=== PATIENT | female | born 1965 | race Caucasian/White ===

== ENCOUNTER 2017-02-08 01:22 | Inpatient (IN) | payer BC ==
[~2017-02-08] VITALS: Ht 167.6 cm; Wt 43.8 kg
--- NOTE | ~2017-02-08 | CATH ---
Cardiac Diagnostic Report Demographics Patient Name RAMANA Braden Gender Female Date of 1965 Age 51 year(s) Patient Number [id number] Date of Study 02/16/2017 Visit Number [id number] Room Number G6314 [place] [id number] Ht 167.64 cm Wt 49.9 kg Referring Papi Graham MD Primary Physician Physician Performing Efstratiou Secondary Physician Physician Jackelin Campos MD Diagnostic Efstratiou Assisting Physician Physician Jackelin Campos MD Interventional Physician Medical Records Technician Physician Findings and Conclusions Diagnostic Findings and Conclusion no significant CAD normal filling pressures Ef 40% Diagnostic Recommendations medical management Procedure Description The patient was brought to the diagnostic cardiac catheterization-EP laboratory in the fasting, non-sedated state. Informed consent was obtained in the written and verbal form after the risks and benefits were explained. The patient had no further questions and agreed to proceed. The planned puncture-incision site(s) were shaved and prepped with ChloraPrep and draped in the usual sterile manner. Conscious sedation, supplemental oxygen, and pain control medications were delivered by a registered nurse under physician guidance. Surface ECG rhythm, blood pressure measurement, and pulse oximetry were monitored throughout the procedure. Arterial access. The access site was infiltrated with lidocaine. The vessel was entered with the Seldinger technique. A sheath was advanced into the vessel and used for catheter placement. Venous access. The access site was infiltrated with lidocaine. The vessel was entered with the Seldinger technique. A sheath was advanced into the vessel and used for catheter placement. Selective left coronary angiography. A catheter was advanced into the left coronary vessel ostium under Fluoroscopic guidance. Contrast was injected by hand. Images were obtained in multiple projections. Selective right coronary angiography. A catheter was advanced into the right coronary vessel ostium under fluoroscopic guidance. Contrast was injected by hand. Images were obtained in multiple projections. Left heart catheterization with ventriculography. A catheter was advanced across the aortic valve to the left ventricle under fluoroscopic guidance. Resting hemodynamics were obtained. With the catheter at the left ventricular apex, contrast was injected. Images were obtained in ENGLISH projections. Post-ventriculography LV pressure was obtained. The catheter was gradually withdrawn into the aorta with continuous pressure recording. Right heart catheterization. A Yermo Miller catheter was successfully advanced to the right atrium, right ventricle, pulmonary artery, and pulmonary artery wedge position under fluoroscopic guidance. Resting hemodynamics were obtained. Measurements included pressures, arterial and venous oxygen saturation samples, and cardiac output. The Yermo was removed without difficulty. Arterial artery hemostasis was achieved. The patient was transferred to a regular nursing floor via cart accompanied by a nurse. The patient left the laboratory in stable condition. Diagnostic Cath Status: Urgent Procedure Procedure Type Diagnostic procedure:Ventriculogram:, Right, Angiography:, Right and Left Heart Cath, Coronary Angios Indications: Septic shock. The procedure was explained in detail to the patient. Risks, complications and alternative treatments were reviewed. Written consent was obtained. Medications Reviewed with Patient prior to Procedure. Angiographic Findings Dominance: Right Cardiac Arteries and Lesion Findings LMCA: Normal (0% Stenosis). LAD: Normal (0% Stenosis). LCx: Normal (0% Stenosis). RCA: Normal (0% Stenosis). Procedure Data Procedure Date Date: 02/16/2017Start: :18 AMEnd: 10:55 AM Entry Locations - Antegrade Percutaneous access was performed through the Left Radial artery (Primary location). A 6 Fr sheath was inserted. This was exchanged for a 6 Fr sheath. Unsuccessful closure attempt was performed using: Manual Compression. Hemostasis was successfully obtained using Mechanical Compression. Closure Comments: 15 cc air in band by el pressure held by ReDent Nova. - Percutaneous access was performed through the Right Femoral vein. A 6 Fr sheath was inserted. Closure Comments: pressure held by ReDent Nova. Procedure Medications Order and Administration + + +-------+-------+ !Time !Medication !Dosage !Route ! + + +-------+-------+ !02/16/2017 !PAE Radial Cocktail: Heparin 5000 units, ! !I.A. ! !10:20 AM !Nitroglycerin 200mcg, Verapamil 3 mg ! ! ! ! !(ACC_3) ! ! ! + + +-------+-------+ !02/16/2017 !Fentanyl !50 mcg !I.V. ! !10:31 AM ! ! ! ! + + +-------+-------+ Devices Used - A6 Fr. Balloon Wedge Catheterwas used for:Right heart cath. - A6 Fr. BS JR 4 Diag. Catheterwas used for:Right coronary angiography. - A6 Fr. BS JL 3.5 Diag. Catheterwas used for:Left coronary angiography. - A6 Fr. BS Angled Pigtail Diag. Catheterwas used for:Left ventriculography. Contrast Material - Isovue 75074 ml Fluoroscopy Time: Diagnostic: 3:48 minutes. Total: 3:48 minutes. Fluoroscopy Dose: Diagnostic: 292 mGy. Total: 292 mGy. Estimated Blood Loss: 10 ml. Medical History Allergies - Other:(cipro). Risk Factors The patient risk factors include:physical activity, last creatinine: 0.4 mg/dl, creatinine clearance: 128.12 ml/min and Current/Recent(w/in 1 year) tobacco use. Admission Data Admission Date: 02/08/2017 Admission Time: 02:18 AM Admit Source: Transfer acute care facility Insurance Payors: Private health insurance. Admission Medications + +------+-----+---------+---------+ + + !Medication !Dosage!Times!Last !Last !Administered !Comments ! ! ! !Per !Delivery !Delivery ! ! ! ! ! !Day !Date !Time ! ! ! + +------+-----+---------+---------+ + + !AMANDO Inhibitor ! ! ! ! ! ! ! !(any) ! ! ! ! ! ! ! + +------+-----+---------+---------+ + + !Beta Amandeep ! ! ! ! ! ! ! !(any) ! ! ! ! ! ! ! + +------+-----+---------+---------+ + + !Unfractionated ! ! ! ! ! ! ! !Heparin (any) ! ! ! ! ! ! ! + +------+-----+---------+---------+ + + Clinical Evaluation Leading to Procedure - There were no CAD presentation symptoms. - There were no anginal symptoms. Anti-anginal medications were prescribed during the past two weeks. The medications are: Beta Blockers and Other. - The patient has been in a state of heart failure within the past two weeks. - The patient's heart failure status was assessed as NYHA Class IV, with CHF symptoms of CANDELARIA. VA Ventriculography Findings normal filling pressure LV function assessed as:Abnormal. Ejection Fraction - 02/10/2017 - Method: Echocardiography. EF%: 30. - 02/06/2017 - Method: LV gram. EF%: 40. Snapshots Hemodynamics Condition: Rest O2 Consumption: Estimated: 148.62Heart Rate: 67 bpm Oxygen Saturation +--------+-----+----+ +---+ + !Location!pCO2 !pO2 !% Saturation !Hgb!O2 Content ! +--------+-----+----+ +---+ + !PA ! ! !55.1 !8.7! ! +--------+-----+----+ +---+ + !RA ! ! !56.9 !8.7! ! +--------+-----+----+ +---+ + !FA ! ! !85.8 !8.7! ! +--------+-----+----+ +---+ + Pressures (mmHg) +-----+ + !Site !Pressure ! +-----+ + !RA !5/3 (2) ! +-----+ + !RV !25/0 ,3 ! +-----+ + !PCW !10/9 (6) ! +-----+ + !PA !20/5 (12) ! +-----+ + !LV !111/0 ,8 ! +-----+ + !LV !107/1 ,7 ! +-----+ + !AO !110/58 (81) ! +-----+ + !LV !104/0 ,7 ! +-----+ + !AO !107/57 (79) ! +-----+ + Cardiac Output +------+ + + + !Method!CO (l/min) !CI (l/min/m2) !SV (ml) ! +------+ + + + !James !4.09 !2.6 !60.78 ! +------+ + + + Valve Gradients and Areas + +--------+--------+--------+---------+ + + !Valve !Peak !Mean !Area !Index !Flow !Source ! + +--------+--------+--------+---------+ + + !Aortic !0 !0 ! ! !470.11 !James ! + +--------+--------+--------+---------+ + + !Aortic !0 !0 ! ! ! ! ! + +--------+--------+--------+---------+ + + Shunts Oxygen Values O2 Capacity 118.32 O2 Consumption 148.62 Flows (l/min) Qs 4.35 Vascular Resistance (dynes x sec x cm-5) + +-----+-----+----+----+---------+-------+ !CO method !TSVR !SVR !TPVR!PVR !TPVR/TSVR!PVR/SVR! + +-----+-----+----+----+---------+-------+ !James !19.27!18.73!2.84!1.26!0.15 !0.07 ! + +-----+-----+----+----+---------+-------+ !Qp or Qs !18.12!17.61! ! ! ! ! + +-----+-----+----+----+---------+-------+ Signatures dtt: Ronnell De La Paz dtd: 02/16/17 1018 Physician Self Edit
--- NOTE | ~2017-02-08 | CON ---
PATIENT'S NAME: ANAM BOLES [facility] AGE: 51 Y [address] ROOM: [place] [address] LOCATION: GPCU ADMIT DATE: 02/08/2017 Consultation DISCHARGE DATE: FAMILY PHYSICIAN: PHYSICIAN, UNKNOWN ATTENDING PHYSICIAN: FESTUS CARUSO DATE OF CONSULTATION: 02/08/2017 REFERRING PHYSICIAN: NEFTALY BIRMINGHAM MD CHIEF COMPLAINT: A 51-year-old female was admitted with epigastric pain, history of melena, and left upper quadrant abdominal pain. HISTORY OF PRESENTING ILLNESS: This 51-year-old lady was admitted with left upper quadrant abdominal pain, recurrent in nature, severe in intensity, rate of 8/10. This was associated with melena. The pain was radiating to the left flank. She was seen in [facility], where she had initial workup done, which showed her white count was 17,500, hemoglobin was 12.2 g, platelet count was 175,000, hematocrit was 38.1. Potassium was 2.6 and sodium was 133. BUN 32 and creatinine 1.8. She was hypotensive and had tachycardia with systolic blood pressure of 60. She was then stabilized, 3 L of normal saline was given and was transferred to [facility] for higher care. REVIEW OF SYSTEMS: 10-point review of system was negative other than mentioned above. PAST MEDICAL HISTORY: 1. She has bipolar disorder. 2. History of cholelithiasis. 3. She has a history of perforated peptic ulcer disease in the past. ALLERGIES: CIPROFLOXACIN. HOME MEDICATIONS: Home medications were reconciled. SOCIAL HISTORY: The patient is a smoker. She has been smoking for the last 30. Denies any alcohol history or other drug abuse. PAST SURGICAL HISTORY: She had exploratory laparotomy for perforated ulcer disease in the past. PATIENT'S NAME: RAMANA [facility] AGE: 51 Y [address] ROOM: [place] [address] LOCATION: GPCU ADMIT DATE: 02/08/2017 Consultation DISCHARGE DATE: FAMILY PHYSICIAN: PHYSICIAN, UNKNOWN ATTENDING PHYSICIAN: FESTUS CARUSO FAMILY HISTORY: Both patients from old age and natural causes. PHYSICAL EXAMINATION: GENERAL: Reveals a well-developed, pleasant lady, who is at present complaining of pain in the left flank area. VITAL SIGNS: Her blood pressure is 113/62, weight is 51.8 kg, pulse is 88 per minute, respiration rate is 32 per minute, and temperature 98.1 degrees Fahrenheit. HEAD: Normocephalic, atraumatic. NECK: Supple. No lymphadenopathy. CHEST: Clear to palpation, percussion, auscultation. CARDIAC: Both heart sound normal. No S3. No murmur. ABDOMEN: Soft, which is tender in the left flank, it is slightly distended. Bowel sounds are present and left renal angle is tender. MUSCULOSKELETAL: She moves all extremities without any restrictive joint disease. NEUROLOGICAL: No lateralization. Cranial nerves II through XII intact. DIAGNOSTIC DATA: She had CT scan of the abdomen done, which showed: 1. Inflammatory changes at the area of the left kidney, which could reflect pyelonephritis. 2. Ill-defined area of increased attenuation in the mid portion of kidney with a small area of decreased attenuation at the lower pole of the left kidney. These findings were indeterminate. This could be associated with the renal infection, neoplastic, renal involvement could not be ruled out. 3. Small volume of air in the bladder and at present left renal collection system, this is likely due to infection. 4. There is a small amount of free fluid in the pelvis. 5. Cholelithiasis. There is a dependent atelectasis at the lung bases and small left pleural effusion. LABORATORY DATA: Lab data shows that her white count which was 17,000 in [facility], has now come down to 14.9, hemoglobin is 10.7, hematocrit 30.4, platelet count is 115. Her prothrombin time is 18.5, INR is 1.75. Neutrophil count is 90%, which is high, there is also 19% bands. CURRENT MEDICATIONS: 1. IV pantoprazole. 2. Lidocaine. 3. Morphine. 4. Fentanyl for pain. PATIENT'S NAME: ANAM BOLES [facility] AGE: 51 Y [address] ROOM: [id number] [place] [id number] [facility] ADMIT DATE: 02/08/2017 Consultation DISCHARGE DATE: FAMILY PHYSICIAN: PHYSICIAN, UNKNOWN ATTENDING PHYSICIAN: FESTUS CARUSO 5. Normal saline. 6. Potassium chloride. 7. Meropenem. ASSESSMENT: 1. This lady has acute pyelonephritis most likely source for leukocytosis and infection. She seems to be quite sick in terms of her left kidney problem. At present, she is on Levophed for blood pressure maintenance while she is getting IV fluids. Her white count has reduced from 17,000 to 14,000, however, she is still quite sick from her kidney infection. 2. She has a history of melena with hemoglobin of 10.7. She has not passed any melenic stools today. RECOMMENDATION: 1. She needs to be stabilized and treated for her kidney problem, which is at this point the reason for her abdominal pain and leukocytosis and sepsis. 2. After the kidney problem has been settled and at rest, she should have EGD and colonoscopy for evaluation of her melena and also for anemia. I discussed the priority of her kidney problem with Dr. Mckeon, who is on- call for the hospitalist service. We appreciate sharing care of this patient. MD STACY MEDRANO/benny /[id number] d: t: 02/09/17 1149, CONSULTATION REPORT
--- NOTE | ~2017-02-08 | CON ---
PATIENT'S NAME: RAMANA [facility] AGE: 51 Y [address] ROOM: [address] [place], [place] [address] LOCATION: [facility] ADMIT DATE: 02/08/2017 Consultation DISCHARGE DATE: FAMILY PHYSICIAN: Rachel Turpin MD ATTENDING PHYSICIAN: FESTUS CARUSO DATE OF CONSULTATION: 02/12/2017 REFERRING PHYSICIAN: NEFTALY BIRMINGHAM MD REQUESTING PHYSICIAN: Dr. Therese Martinez. REASON FOR CONSULTATION: Evaluation and management of a patient with acute respiratory failure requiring mechanical ventilation. CHIEF COMPLAINT: Acute respiratory failure. HISTORY OF PRESENT ILLNESS: This is a 51-year-old female, with history of bipolar disorder, who was admitted on 02/08/2017, with severe sepsis due to pyelonephritis. The patient was started on broad-spectrum antibiotics, but her clinical status did not improve too much. During this admission, she was also diagnosed with congestive heart failure with low ejection fraction of 30% to 35%. Yesterday, she was taken to the operating room by the [facility] where a stent was placed into her left ureter. According to the records, a significant amount of pus came out. She also had hydronephrosis on that side. The patient could not be extubated and was transferred to the intensive care unit on mechanical ventilation with a tidal volume of 400, respiratory rate of 15, 100% FiO2, and a PEEP of 5. Subsequently, the FiO2 was decreased to 40%. This morning, a spontaneous breathing trial was attempted with CPAP of 5 and pressure support of 10. Immediately after the spontaneous breathing trial was started, the patient's respiratory rate went up to 40s and 50s with tidal volumes in the 250 mL range. There was a question regarding increased anxiety given underlying bipolar disorder and generalized anxiety disorder. For this reason, I was asked to come and evaluate the patient. At the time of my evaluation, the patient was awake and complaining about discomfort from the endotracheal tube. I reviewed her fluid balance during this admission, and she has had an approximately 10 L positive fluid balance since admission. Her blood pressure was stable, but on the low side after she was intubated. She has been on meropenem and vancomycin since admission. She was able to nod appropriately to some questions. PAST MEDICAL HISTORY: PATIENT'S NAME: RAMANA [facility] AGE: 51 Y [address] ROOM: [address] [place], [place] [address] LOCATION: [facility] ADMIT DATE: 02/08/2017 Consultation DISCHARGE DATE: FAMILY PHYSICIAN: Rachel Turpin MD ATTENDING PHYSICIAN: FESTUS CARUSO 1. Bipolar disorder. 2. History of perforated peptic ulcer disease. 3. Cholelithiasis. ALLERGIES: TO CIPROFLOXACIN WHICH CAUSES RASH. CURRENT MEDICATIONS: Reviewed as per chart and were reconciled at the time of admission. Current medications were reviewed as per chart as well. Pertinent medications as per history of present illness. SOCIAL HISTORY: She has been smoking about half a pack per day for the last 30 years. There is no history of alcohol or illicit drug abuse. FAMILY HISTORY: According to the chart her parents of old age and she could not remember the diseases that they had specifically REVIEW OF SYSTEMS: Pertinent positives and negatives as per history of present illness. A complete review of systems could not be performed because of the patient's clinical status, as she was intubated, and also on fentanyl drip. PHYSICAL EXAMINATION: VITAL SIGNS: Temperature is 102.7, heart rate is 114, respiratory rate is 26, oxygen saturation 90% on 40% FiO2. Weight 54.4 kg after being 51.8 on admission, height is 5 feet and 6 inches. GENERAL: She is a female, intubated, sitting up in bed in obvious respiratory distress while on spontaneous breathing trial. Frail looking. HEENT: Atraumatic head. PERRLA. Anicteric sclerae. Moist oral mucosa. NECK: Supple. No JVD. No LAD. Trachea midline. No thyromegaly. RESPIRATORY: She has diffuse anterior rhonchi and bibasilar crackles at both lung bases with some diminished sounds bilaterally at the bases. CARDIOVASCULAR: Regular rhythm. Tachycardic. No murmur, rubs, or gallops. ABDOMEN: Soft, nontender, and nondistended. Bowel sounds are diminished, but present. EXTREMITIES: No lower extremity edema. No cyanosis. No clubbing. NEURO: She is alert and able to follow simple commands. LABORATORY AND DIAGNOSTIC DATA: Earlier today, WBC was 12.5, hemoglobin 8.1, hematocrit of 23.6, and platelets of 87. Gram stain from the BAL that was obtained after intubation revealed many white blood cells, but no bacteria. Sodium was 141, potassium of 3.7, PATIENT'S NAME: ANAM BOLES [facility] AGE: 51 Y [address] ROOM: [address] [place], [place] [address] LOCATION: [facility] ADMIT DATE: 02/08/2017 Consultation DISCHARGE DATE: FAMILY PHYSICIAN: Rachel Turpin MD ATTENDING PHYSICIAN: FESTUS CARUSO chloride of 110, total serum bicarbonate of 21, BUN of 6, creatinine of 0.6, albumin of 1.6, and phosphorus of 2.4. Chest x-ray revealed bilateral vascular congestion with increased reticular opacities and small bilateral pleural effusions. This is consistent with fluid overload and pulmonary edema. I also performed a bedside ultrasound that revealed a small to moderate bilateral pleural effusions with free- floating lung. Cardiac echo from February 10, 2017, revealed ejection fraction of 30% to 35%, mild mitral regurgitation, mild pulmonary hypertension with an RVSP of around 36 and bilateral pleural effusions. ASSESSMENT: 1. Acute respiratory failure. This is in context of pulmonary edema with pleural effusions and severe sepsis. She is difficult to wean due to very increased rapid shallow breathing index in the 150 range. According to many studies, this would be a major contraindication for extubation. 2. Pulmonary edema. This is due to fluid overload in context of systolic congestive heart failure. 3. Pleural effusions. These are again in context of fluid overload. They are small to moderate in size and the risks outweigh the benefits for thoracentesis. 4. Fluid overload. This seems to be massive and iatrogenic. She has been almost 10 L positive since admission. 5. Anxiety. She has anxiety at baseline and she is on alprazolam for that. However, I think her tachypnea during the spontaneous breathing trial is more related to the pulmonary edema. 6. Systolic congestive heart failure with low ejection fraction and global hypokinesis. This can be sepsis induced versus related to coronary artery disease or a combination. 7. Tobacco abuse. This was ongoing for a long period of time. The patient might have developed chronic obstructive pulmonary disease. 8. Severe sepsis due to left pyelonephritis and hydronephrosis. She is status post stent placement in the left ureter and she is also on broad- spectrum antibiotics. PLAN: 1. We will continue mechanical ventilation and I will decrease the IV fluid rate. I will give her IV Lasix with albumin today. 2. I will start her on Precedex drip and she may need vasopressors. 3. She will need a better IV access, so I will recommend PICC line placement. 4. There is no the need for thoracentesis today as her pleural effusions are not large and she may respond well to IV diuresis. 5. We will follow up CBC and renal panel. The current assessment and plan was discussed with the patient, the patient's PATIENT'S NAME: ANAM BOLES [facility] AGE: 51 Y [address] ROOM: [place] [address] LOCATION: [facility] ADMIT DATE: 02/08/2017 Consultation DISCHARGE DATE: FAMILY PHYSICIAN: Rachel Turpin MD ATTENDING PHYSICIAN: FESTUS CARUSO, and the nursing staff at bedside. I spent 45 minutes of critical care time managing acute respiratory failure in a patient with severe sepsis, pulmonary edema, pleural effusion, and multiple other comorbidities. I personally reviewed the data and coordinated care among healthcare providers, and personally updated the patient's family at the bedside. MD JAMES MAYO/benny /[id number] d: 02/13/17 1220 t: 02/13/17 1715, CONSULTATION REPORT
--- NOTE | ~2017-02-08 | OR ---
PATIENT'S NAME: RAMANA [facility] AGE: 51 Y [address] ROOM: [place] [address] LOCATION: GICU ADMIT DATE: 02/08/2017 OR/Procedure Report DISCHARGE DATE: FAMILY PHYSICIAN: Rachel Turpin MD ATTENDING PHYSICIAN: FESTUS CARUSO SURGEON: Janak Charles MD RN PLACEMENT: DATE OF PROCEDURE: 02/11/2017 PREOPERATIVE DIAGNOSES: 1. Urosepsis. 2. Left distal ureter stone. POSTOPERATIVE DIAGNOSES: 1. Urosepsis. 2. Left distal ureter stone. PROCEDURE PERFORMED: Cystoscopy, left stent placement. ANESTHESIA: General. COMPLICATIONS: None. INDICATION FOR PROCEDURE: The patient is a 51-year-old female with severe urosepsis who was emergently consulted on secondary to a 7 x 5 mm distal left ureter stone with severe hydronephrosis. DETAILS OF PROCEDURE: After informed consent was obtained, the patient was taken to the operating room. A general anesthetic was applied and she was placed in a dorsal lithotomy position. The groin area was prepped and draped in normal sterile fashion. Cystoscope was introduced into the urethra and bladder without difficulty. The left ureteral orifice was identified and cannulated with a guidewire up into the renal pelvis. Next, a 6-Yi multi- length ureteral stent was passed over a guidewire up into the renal pelvis under fluoroscopy guidance. Once the stent was introduced past the stone, a large amount of purulent drainage was noted. Radiograph imaging showed good positioning of the stent. The patient tolerated the procedure and was emergently transferred to the Intensive Care Unit. JANAK CHARLES MD JULES/modl [facility] AGE: 51 Y [address] ROOM: [place] [address] LOCATION: GICU ADMIT DATE: 02/08/2017 OR/Procedure Report DISCHARGE DATE: FAMILY PHYSICIAN: Rachel Turpin MD ATTENDING PHYSICIAN: FESTUS CARUSO /[id number] d: 02/12/170 t: 03/03/17 0904, OPERATIVE SUMMARY
--- NOTE | ~2017-02-08 | ECHO ---
Transthoracic Echocardiography Report (TTE) Demographics Patient Name ANAM BOLES Date of Study 02/10/2017 Patient Number [id number] Visit Number [id number] Date of 1965 Room Number G6332 Gender Female Number Age 51 year(s) Referring [facility] Social Services Director Tianna Singh RDCS, Physician Therese RVT Physician Interpreting Ana Cristina Benítez Senior Sales Compensation Analyst Physician A MD Supervising Ordering [facility] Therese MD/MLP Physician Nurse Stress Coater Slate Conclusions Contractility Score Summary At rest the following contractility abnormalities were noted: Hypokinesis of the Mid lima-lateral, the Mid anterior, the Mid infero-septal, the Mid inferior, the Mid infero-lateral, the Basal infero-lateral, the Apical inferior, the Apical septal, the Basal infero-septal, the Apical lateral, the Apical anterior, the Basal anterior, the Basal inferior, the Basal lima-lateral and the Apical cap segments; Dyskinesis of the Mid lima-septal and the Basal lima-septal segments. Summary The estimated left ventricular ejection fraction is 30-35%. Mild mitral regurgitation by color Doppler. Mild mitral annular calcification. Moderate tricuspid regurgitation by color Doppler. There is mild pulmonary hypertension. The pulmonary pressure (RVSP) is 36.53 mmHg. Pleural effusion present. Procedure Type of Study TTE procedure:2D Echocardiogram. Procedure Date Date: 02/10/2017 Start: 03:17 PM Study Location: Inpatient Portable Technical Quality: Adequate visualization Indications:Heart Failure. Appropriate Use Criteria: 9 Patient Status: Routine HR: 82 bpm BP: 89/52 mmHg M-Mode/2D Measurements LV Diastolic Dimension: 4.9 cm LV Systolic Dimension: 3.92 cm LV Septum Diastolic: 0.64 cm LV PW Diastolic: 0.93 cm Cardiac Output: 3.27 l/min LA Dimension: 2.2 cm LVOT: 1.8 cm LVOT VTI: 15.7 cm RV Base: 4.03 cm LV Stroke volume: 39.93 ml RV Length: 5.84 cm TAPSE: 2.21 cm TDI-S': 12.5 cm/s Doppler Measurements AV Peak Velocity: 1.14 m/s MV Peak E-Wave: 0.8 m/s AV Peak Gradient: 5.2 mmHg MV Peak A-Wave: 0.56 m/s AV Mean Gradient: 4 mmHg MV E/A Ratio: 1.43 LVOT Peak Velocity: 0.86 m/s MV Deceleration Time: 137 msec TR Velocity:2.32 m/s PV Peak Velocity: 0.82 m/s TR Gradient:21.53 mmHg PV Peak Gradient: 2.68 mmHg Estimated RAP:15 mmHg Estimated PASP: 36.53 mmHg Estimated RVSP: 37 mmHg Findings Left Ventricle Diastolic assessment reveals Grade II pseudonormal diastolic function . The left ventricle is borderline dilated . Diffuse hypokinesis. Right Ventricle Normal right ventricle structure and function. Left Atrium The left atrium is moderately dilated by LA volume index measurement. Right Atrium The right atrium is mildly dilated. Dilated IVC with poor inspiratory collapse consistent with elevated RA pressure. Mitral Valve Mild mitral regurgitation by color Doppler. Mild mitral annular calcification. Aortic Valve The aortic valve is mildly sclerotic. Tricuspid Valve Moderate tricuspid regurgitation by color Doppler. There is mild pulmonary hypertension. The pulmonary pressure (RVSP) is 36.53 mmHg. Pulmonic Valve Normal pulmonic valve structure and function. Trivial pulmonic valve regurgitation. Pericardial Effusion No evidence of pericardial effusion. Miscellaneous Visualized portions of the aortic root and ascending aorta appear normal in size. Pleural Effusion Pleural effusion present. Contractility Score LV regional wall motion:(0-Non visualized 1-Normal 2-Hypokinesis 3-Akinesis 4-Dyskinesis 5-Aneurysm) Signature dtt: Ronnell De La Paz dtd: 02/10/17 1517 Physician Self Edit
--- NOTE | ~2017-02-08 | DS ---
PATIENT'S NAME: RAMANA [facility] AGE: 51 Y [address] ROOM: [place] [address] LOCATION: GPCU ADMIT DATE: 02/08/2017 Discharge Summary DISCHARGE DATE: 02/23/2017 FAMILY PHYSICIAN: Rachel Turpin MD ATTENDING PHYSICIAN: Manuelito Short ADMISSION DIAGNOSIS: Septic shock. DISCHARGE DIAGNOSIS: Septic shock secondary to acute obstructive pyelonephritis with abscess, resolved. SECONDARY DIAGNOSES: 1. Nonischemic cardiomyopathy. 2. Severe protein-calorie malnutrition. 3. Bipolar disease. 4. Anemia of iron deficiency. 5. History of peptic ulcer disease. PROCEDURES PERFORMED: 1. Cystoscopy with left stent placement. Procedure done on 02/11/2017. 2. CT guided nephrostomy tube placement on 02/14/2017. 3. Cardiac catheterization done on 02/16/2017 that shows no significant coronary artery disease. Normal filling pressure with EF of 40%. 4. Echocardiogram done on 02/10/2017 that shows left ventricular ejection fraction of 30 to 35%. CONSULTATIONS: 1. Urology. 2. Cardiology. 3. Physical Therapy and Occupational Therapy. 4. Interventional Radiology. HISTORY OF PRESENT ILLNESS: The patient is a 51-year-old female who presents with 2 days' history of having nausea and vomiting and left upper quadrant pain. At that time, the intensity was 8/10, radiates to the back. Because of this problem, the patient presented to outside facility in [facility]. Over there, the patient was found to have leukocytosis with a white blood cell count of 17.5, hemoglobin at 12.4, and platelets of 175,000. The patient was transferred for further care to our hospital. Shortly on arrival to our facility, the patient's blood pressure was in systolic 60s and tachycardic. The patient was given 3 L of normal fluids without resolvement of blood pressure. The patient was started on dopamine and Levophed drip. The patient received 1 g of ceftriaxone at the outside hospital. PATIENT'S NAME: RAMANA [facility] AGE: 51 Y [address] ROOM: [place] [address] LOCATION: GPCU ADMIT DATE: 02/08/2017 Discharge Summary DISCHARGE DATE: 02/23/2017 FAMILY PHYSICIAN: Rachel Turpin MD ATTENDING PHYSICIAN: Manuelito Short [facility]RSE: The patient was admitted in the ICU, was treated with pressor and IV fluids and meropenem. A CT of abdomen was done that shows pyelonephritis of the left kidney without obstruction. The patient improved during stay with IV fluids and antibiotics. Urine culture grew out E. coli. The patient was transferred out from ICU and was doing well. However, the patient had acute hypoxic respiratory failure with increased temperature during stay. The patient was readmitted to the ICU and had repeat CT that showed obstructive left kidney pyelonephritis with hydronephrosis with possible abscess. The patient was taken urgently by Urology for cystoscopy with kidney stone removal and stent placement. The patient continued to improve. The patient hemodynamically was stable but however, patient continued to have some fever and increased leukocytosis. IR was consulted to place a drainage for nephrostomy tube. Also patient during her stay, had a complication with acute hypoxic respiratory failure secondary to decompensated systolic heart failure. Initial echocardiogram shows EF of 30%. During his stay, the patient had a coronary angiogram done for further investigation which shows no signs of coronary artery disease. The patient was treated medically. The patient continued to do well on meropenem. Nephrostomy culture and urine culture showed E coli, was sensitive to ceftriaxone. Meropenem was changed to ceftriaxone. The patient during stay improved well, was afebrile and decreased leukocytosis. The patient's nephrostomy tube was taken out after it had minimal output. The patient was switched to oral Augmentin. During oral Augmentin, the patient continued to show improvement. The patient was seen by Physical Therapy and Occupational Therapy during her stay. The patient was discharged to home in stable condition to follow up with Urology and Cardiology. CONDITION: Stable. DISPOSITION: Home. DISCHARGE MEDICATIONS: Please see MAR. DISCHARGE INSTRUCTIONS: If she has fever, abdominal pain, nausea, vomiting, chest pain, or shortness of breath, please go to the emergency department. FOLLOW-UP: The patient is to follow up with Urology for stent removal and Cardiology for further investigation of nonischemic cardiomyopathy. Greater than 30 minutes were spent on discharge planning. NICO COBOS MD PATIENT'S NAME: ANAM BOLES AGE: 51 Y [address] ROOM: [place] [address] [facility] AD[facility] DATE: 02/08/2017 Discharge Summary DISCHARGE DATE: 02/23/2017 FAMILY PHYSICIAN: Rachel Turpin MD ATTENDING PHYSICIAN: Manuelito Short/benny /[id number] d: 02/24/17 0158 t: 02/24/17 0615, DISCHARGE SUMMARY
--- NOTE | ~2017-02-08 | CON ---
PATIENT'S NAME: RAMANA [facility] AGE: 51 Y [address] ROOM: [place] [address] LOCATION: GICU ADMIT DATE: 02/08/2017 Consultation DISCHARGE DATE: FAMILY PHYSICIAN: Rachel Turpin MD ATTENDING PHYSICIAN: FESTUS CARUSO REFERRING PHYSICIAN: NEFTALY BIRMINGHAM MD HISTORY OF PRESENT ILLNESS: The patient is a 51-year-old female whom I was emergently consulted on secondary to urosepsis. The patient's CT scan today shows a 7 mm distal left ureter stone with hydronephrosis and inflammatory change in left kidney consistent with left pyelonephritis, also the possibility of a subcapsular renal abscess. I discussed these findings with the patient and recommended emergent cystoscopy with stent placement. PAST MEDICAL HISTORY: Significant for bipolar disorder, history of gallstones, and history of perforated ulcer disease. MEDICATIONS: See detailed history and physical. ALLERGIES: CIPROFLOXACIN. SOCIAL HISTORY: The patient is a smoker and has smoked for the past 30 years. PAST SURGICAL HISTORY: Significant for exploratory laparotomy for perforated ulcer disease. PHYSICAL EXAMINATION: GENERAL: Toxic-appearing female in acute distress. RESPIRATORY: Respirations are rapid and labored CARDIAC: Severe tachycardia. ABDOMEN: Soft. Normoactive bowel sounds. There was significant left flank tenderness with palpation. IMPRESSION: Uroseptic patient with obstructed stone. PLAN: We will take to OR for emergent cystoscopy and stent placement. Risks and benefits discussed. [facility] AGE: 51 Y [address] ROOM: [place] [address] LOCATION: GICU ADMIT DATE: 02/08/2017 Consultation DISCHARGE DATE: FAMILY PHYSICIAN: Rachel Turpin MD ATTENDING PHYSICIAN: FESTUS CARUSO MD JULES LOVE/benny /[id number] d: 02/12/17 0159 t: 08/01/17 0902, CONSULTATION REPORT
--- NOTE | ~2017-02-08 | HP ---
PATIENT'S NAME: CLARISSA BOLESA [facility] AGE: 51 Y [address] ROOM: [place] [address] LOCATION: [facility] ADMIT DATE: 02/08/2017 History & Physical DISCHARGE DATE: FAMILY PHYSICIAN: PHYSICIAN, UNKNOWN ATTENDING PHYSICIAN: FESTUS CARUSO DATE OF SERVICE: CHIEF COMPLAINT: Nausea, vomiting, and epigastric and left upper quadrant pain as well as intermittent melena and decreased oral intake. HISTORY OF PRESENT ILLNESS: This is a 51-year-old female, who says that about roughly 2 days ago, the patient has been having this nausea and vomiting of bilious content associated with epigastric and left upper quadrant pain. At that time, the intensity was about 8/10 and radiated to the back. Yesterday, the patient also had a few episodes of melena. Because she has been vomiting, the patient also has poor oral intake. The patient does deny any urinary frequency, urgency, or dysuria. The patient does complain of tenderness in costovertebral angle bilaterally. Because of this problem, the patient initially presented to the outside facility in [facility]. Over there, the patient was found to have leukocytosis, white blood cells 17.5 with hemoglobin at 12.2, platelets at 175,000 and hematocrit 38.1. Potassium 2.6, sodium 133, CO2 of 21, BUN 32, and creatinine 1.8. UA was positive for leukocyte, also moderate bacteria, and also positive nitrite and it was cloudy. Shortly after arrival, the patient's blood pressure over there dropped down to the 60 systolic and tachycardia at 130s. The patient was given a total of 3 L normal saline and started on dopamine and also Levophed drip. The patient also got 1 g of IV ceftriaxone over there. Her blood pressure improved to the 110, MAP was in the 79. The patient was transferred here for further care. REVIEW OF SYSTEMS: As mentioned in history of present illness. All other systems were reviewed and were negative except those mentioned in history of present illness. PAST MEDICAL HISTORY: 1. Bipolar disorder. 2. History of cholelithiasis. 3. History of perforated peptic ulcer disease in the past. ALLERGIES: CIPROFLOXACIN, WHICH CAUSES RASH. PATIENT'S NAME: RAMANA [facility] AGE: 51 Y [address] ROOM: [address] [address] LOCATION: GICU ADMIT DATE: 02/08/2017 History & Physical DISCHARGE DATE: FAMILY PHYSICIAN: PHYSICIAN, MULUGETA ATTENDING PHYSICIAN: FESTUS CARUSO [place] MEDICATIONS: Currently has been reconciled. The patient denies any NSAID. SOCIAL HISTORY: The patient is an active cigarette smoker about half pack per day for the last 30 years. She denies any alcohol or any illegal drug use. PAST SURGICAL HISTORY: Status post exploratory laparotomy for perforated peptic ulcer disease in the past. FAMILY HISTORY: Both parents from old age. She could not remember from what cause. PHYSICAL EXAMINATION: VITAL SIGNS: At the time of dictation, temperature 103.1, heart rate 123, respirations 38, blood pressure 118/49, MAP of 72, and saturation 94% on room air. GENERAL APPEARANCE: The patient looks acutely ill, in moderate discomfort in general appearance. Alert and oriented x3. HEENT: Pupils equally round and reactive to light. Extraocular muscles intact. Anicteric sclerae. Nasal turbinates are normal bilaterally. Moist oral mucosa. NECK: No JVD. CARDIOVASCULAR: Tachycardic. Normal S1, S2. No murmur. No rubs. No gallops. Regular rhythm. RESPIRATORY: Clear to auscultation. No rales. No rhonchi. No crackles. No wheezing. ABDOMEN: Soft, nondistended, tenderness to palpation in the epigastric and also in the left upper quadrant about 4/10 intensity. No abdominal rigidity at the moment. Bowel sounds are present. The patient also has costovertebral angle tenderness to palpation bilaterally. Soft. EXTREMITIES: No edema in upper or lower extremities. SKIN: No ulcer, no rash, no cyanosis. NEUROLOGIC: Grossly nonfocal. LABORATORY DATA: Currently, the only thing available in the lab right now is lactic acid 2.8. White blood cell 14.4, hemoglobin 10.7, hematocrit 31.7, and platelets 148. All the rest is pending at the moment. IMAGING STUDIES: None were performed from the outside facility. PATIENT'S NAME: ANAM BOLES [facility] AGE: 51 Y [address] ROOM: [address] [address] LOCATION: GICU ADMIT DATE: 02/08/2017 History & Physical DISCHARGE DATE: FAMILY PHYSICIAN: PHYSICIAN, UNKNOWN ATTENDING PHYSICIAN: FESTUS CARUSO ASSESSMENT AND PLAN: 1. Regarding her septic shock: Currently, I am going to do a CT of the abdomen and pelvis without contrast to see what is going on. Differential here could be pyelonephritis, perforated peptic ulcer disease, cholecystitis, or any other abnormality that could explain the patient's presentation. I will get a urine culture and blood culture 2 sets and also start her on the IV meropenem for coverage. IV fluids for hydration and also keep her on the pressor with Levophed and also on Ananth- Synephrine. If necessary, we will do a third one, which will be a vasopressin if needed. Further plan will depend on clinical course. 2. Regarding her WILLIAM: Continue iv fluids and check renal panel and watch closely for fluid overload. She has gotten 3L NS bolus from outside facility, I will continue at 75cc/hr while on vasopressors. 2. Regarding her bipolar disorder: Home medication has to be reconciled before it can be addressed. 3. Regarding her history of perforated peptic ulcer disease: Patient mentioned she had few episodes of melena yesterday. CT scan is being performed right now. I am going to cover her with IV Protonix 40 mg b.i.d. Also, check Hemoccult blood stool x3. If positive, we will consult GI. For now, keep the patient n.p.o. 4. Regarding her deep venous thrombosis prophylaxis: In the setting of a possible GI problem, for now I will not do anything pharmacological. For now, we will do the compression devices. 5. In addition, I will get a blood type and screen in case the patient will require transfusion. 6. The patient is a full code. Time spent in care on the day of admission 70 minutes where more than half of the time was spent on counseling, including going over the plan of care with the patient multiple times and also by addressing her questions and concerns to her satisfaction. This time also includes going over the plan of care with the nurse. The remainder of the time was spent on interview and chart review and also on the physical examination. Further plan will depend on clinical course. MD KARLA BECKHAM/modl /[id number] D: 426 T: 210 HISTORY & PHYSICAL
--- NOTE | ~2017-02-08 | CON ---
PATIENT'S NAME: RAMANA [facility] AGE: 51 Y [address] ROOM: [place] [address] LOCATION: GICU ADMIT DATE: 02/08/2017 Consultation DISCHARGE DATE: FAMILY PHYSICIAN: Rachel Turpin MD ATTENDING PHYSICIAN: FESTUS CARUSO DATE OF CONSULTATION: 02/11/2017 REFERRING PHYSICIAN: NEFTALY BIRMINGHAM MD REASON FOR CARDIOLOGY CONSULT: Decreased ejection fraction and wall motion abnormalities on echocardiogram. HISTORY OF PRESENT ILLNESS: This is a 51-year-old female, admitted with septic shock with acute kidney injury secondary to UTI. She had been having abdominal pain with nausea, vomiting, and melena stools before admission. Her echocardiogram shows an ejection fraction of 30 to 35% with extensive hypokinesis. She denies any chest pain, palpitations, presyncope, or syncope. She does complain of some dyspnea on exertion prior to this admission. Yesterday, she did have an event of flash pulmonary edema after working with Physical Therapy. She is currently comfortable, resting on her nasal cannula, but she was previously on BiPAP and Lasix. There is no personal or family history of cardiac disease. PAST MEDICAL HISTORY: 1. Bipolar disease. 2. History of cholelithiasis. 3. History of perforated peptic ulcer. PAST SURGICAL HISTORY: Exploratory laparotomy after peptic ulcer perforation. FAMILY HISTORY: No known family history diagnoses. Both of her parents due to old age. SOCIAL HISTORY: The patient is a current daily cigarette smoker. She smoked half a pack per day for the last 30 years. She denies alcohol or illicit drug use. CURRENT MEDICATIONS: 1. Proventil inhaled every 6 hours. 2. Lopressor 25 mg p.o. twice daily. 3. Protonix 40 mg p.o. daily. 4. Prozac 40 mg p.o. daily. 5. Trileptal 300 mg p.o. daily in the morning and 600 mg p.o. daily in the PATIENT'S NAME: RMAANA [facility] AGE: 51 Y [address] ROOM: [place] [address] LOCATION: GICU ADMIT DATE: 02/08/2017 Consultation DISCHARGE DATE: FAMILY PHYSICIAN: Rachel Turpin MD ATTENDING PHYSICIAN: FESTUS CARUSO. MEDICATION ALLERGIES: Ciprofloxacin causing hives. REVIEW OF SYSTEMS: Pertinent positive review of systems as listed in the HPI. All other review of systems were evaluated and negative. PHYSICAL EXAMINATION: VITAL SIGNS: Temperature 98.9, pulse 106, respirations 28, blood pressure 110/62, and O2 saturation 93% on 2 L nasal cannula. The patient weighs 53.6 kg. SKIN: [place], warm, and dry. EYES: Sclerae are clear. No xanthelasmas. ENT: Oral mucosa is pink and moist. No jugular venous distention. No carotid bruits. CHEST: Respirations are even and slightly labored. Lung sounds are clear to bilateral upper lobes. They are diminished to bilateral lower lobes. HEART: Regular rate and rhythm. Normal S1 and S2. No murmurs, rubs, or gallops. She is tachycardic. ABDOMEN: Tender to palpation, but bowel sounds are present x4 quadrants. MUSCULOSKELETAL: Gait is normal. EXTREMITIES: Peripheral pulses palpable. No clubbing, cyanosis, or lower extremity edema present. She does have mild presacral edema. PSYCH: Alert and oriented. Mood and affect are appropriate. IMPRESSION AND PLAN: Per Dr. Carranza. 1. Acute systolic congestive heart failure with an ejection fraction of 30% to 35%. We will evaluate her for a possible ischemic etiology by continuing to check cardiac enzymes every 6 hours x3 sets as well as get a ProBNP, lipid panel, BMP, magnesium, and a 12-lead EKG. 2. Severe sepsis with urinary tract infraction. She is still having instances of febrileness on antibiotics. She is currently off IV pressor support, but continues on IV antibiotics. 3. Acute kidney injury, currently improved. The patient did have a positive hematest stool, and plan for endo is deferred until the patient is stabilized. The patient will need undergo right and left heart catheterization which is stable as well. We will continue to monitor, evaluate, and treat as appropriate. Thank for this consult. Thank you for allowing [facility] to interact in the care of this patient. PATIENT'S NAME: ANAM BOLES [facility] AGE: 51 Y [address] ROOM: [address] [address] LOCATION: GICU ADMIT DATE: 02/08/2017 Consultation DISCHARGE DATE: FAMILY PHYSICIAN: Rachel Turpin MD ATTENDING PHYSICIAN: FESTUS CARUSO ALPHONSO GONZALEZ APRN FOR CARRINGTON CARRANZA MD DEH/modl /[id number] d: 02/12/17 [facility] t: 02/25/17 1013, CONSULTATION REPORT
[~2017-02-08 01:22] MED LIST changes: -AUGMENTIN 875-1 EACH PO; -BENTYL10 MG PO; -FEOSOL325 MG PO; -PROTONIX40 MG PO; -TRAZODONE HCL50 MG PO; -TYLENOL WITH C1 EACH PO
[2017-02-08 03:29] LABS: HEMATOCRIT 31.7 % (33.0-46.0); HEMOGLOBIN 10.7 g/dL (10.0-15.0); MCH 31.6 pg (27.0-34.0); MCHC 33.8 gm/dL (32.0-36.5); MCV 93.5 fl (83.0-98.0); MPV 10.7 fl (9.4-12.4); PLATELET COUNT 148 K/uL (150-450); RBC 3.39 M/uL (3.50-5.50); RDW-CV 13.7 % (11.9-14.6); WBC 14.4 K/uL (4.0-11.0)
[2017-02-08 03:37] LABS: INR - (THERAPEUTIC) 1.73 (0.92-1.07); PROTIME 18.3 SECONDS (9.8-11.4); PTT 41 SECONDS (25-32)
[2017-02-08 03:50] LABS: ALBUMIN 2.4 gm/dL (3.5-5.0); ANION GAP 14.4 (10.0-19.0); CREATININE 1.6 mg/dL (0.5-1.1); POTASSIUM 3.4 mMol/L (3.7-5.1); TOTAL BILIRUBIN 0.2 mg/dL (0.0-1.5); TOTAL PROTEIN 5.3 g/dL (6.0-8.4)
[2017-02-08 03:51] LABS: CALCIUM 6.5 mg/dL (8.5-10.5)
[2017-02-08 03:59] LABS: ABSOLUTE NEUTROPHIL CT (ANC) 12.7 K/uL (1.8-7.8); BANDED NEUTROPHIL # 2.7 K/uL (0.0-0.1); BANDED NEUTROPHILS % 19 %; LYMPHOCYTE # 0.9 K/uL (0.8-4.0); LYMPHOCYTE % 6 %; MONOCYTE # 0.6 K/uL (0.0-1.0); SEGMENTED NEUTROPHIL # 9.9 K/uL (1.8-7.8); SEGMENTED NEUTROPHIL % 69 %
[2017-02-08 04:18] LABS: BICARBONATE 13.4 mmol/L (18.0-23.0); PO2 120 mmHg (80-90)
[2017-02-08 04:26] LABS: PCO2 16 mmHg (35-45)
--- NOTE | 2017-02-08 04:43 | NUR ---
Significant Event: PT ADMIT TO ICU. HYPOTENSIVE UPON ARRIVAL. LEVOPHED CONTINUED AT MAXIMUM DOSE OF 0.2MCG/KG/MIN. 3L NS RECEIVED EN ROUTE. PT IS TACHYPNEIC. CLEAR LUNG AUSCULATATION. ABDOMINAL DISCOMFORT AND TENDERNESS, PT WENT DOWN FOR STAT CT OF ABD. PT UNABLE TO VOID. BLADDER SCAN REVEALED O ML OF URINE IN HER BLADDER. DECREASED GFR, ELEVATED CREATININE, LOW K. REPLACING WITH 40 KCL, PT CAN HAVE ICE CHIPS. NEED X3 HEMATEST TO TEST FOR OCCULT IN HER FECES. NEED UA YET. PT TO RECEIVE IV ANTIBIOTICS. Follow up: WEAN LEVOPHED.
[2017-02-08 08:46] LABS: HEMATOCRIT 30.4 % (33.0-46.0); HEMOGLOBIN 10.7 g/dL (10.0-15.0); MCH 32.5 pg (27.0-34.0); MCHC 35.2 gm/dL (32.0-36.5); MCV 92.4 fl (83.0-98.0); MPV 10.8 fl (9.4-12.4); RBC 3.29 M/uL (3.50-5.50); RDW-CV 13.8 % (11.9-14.6); WBC 14.9 K/uL (4.0-11.0)
[2017-02-08 08:58] LABS: INR - (THERAPEUTIC) 1.75 (0.92-1.07); PROTIME 18.5 SECONDS (9.8-11.4)
[2017-02-08 09:06] LABS: ALBUMIN 2.2 gm/dL (3.5-5.0); ALK PHOS 73 IU/L (33-138); ALT 31 IU/L (12-78); AST 55 IU/L (10-40); BLOOD UREA NITROGEN 31 mg/dL (6-24); CHLORIDE 114 mMol/L (96-110); CREATININE 1.3 mg/dL (0.5-1.1); SODIUM 140 mMol/L (135-145); TOTAL BILIRUBIN 0.2 mg/dL (0.0-1.5); TOTAL PROTEIN 5.1 g/dL (6.0-8.4)
[2017-02-08 09:27] LABS: CALCIUM 6.4 mg/dL (8.5-10.5); CO2 16 mMol/L (22-32); ESTIMATED GFR (MDRD EQUATION) 43
[2017-02-08 15:16] LABS: BILIRUBIN URINE NEGATIVE (NEGATIVE); BLOOD URINE 250 /UL (NEGATIVE); COLOR URINE YELLOW (YELLOW); GLUCOSE URINE NEGATIVE (NEGATIVE); KETONE URINE NEGATIVE (NEGATIVE); LEUKOCYTES URINE 500 /UL (NEGATIVE); NITRITE URINE POSITIVE (NEGATIVE); PROTEIN URINE 100 mg/dL (NEGATIVE); TURBIDITY URINE 1+ (CLEAR); UROBILINOGEN URINE NORMAL (NORMAL)
[2017-02-08 15:24] LABS: WBC URINE FULL FIELD #/HPF (NEGATIVE)
[2017-02-08 15:25] LABS: BACTERIA URINE MODERATE (NEGATIVE); EPITHELIAL URINE 0-2 #/HPF (NEGATIVE)
--- NOTE | 2017-02-08 16:15 | NUR ---
Significant Event: Patient is alert and oriented x3. Patient's temperature has been decreasing throughout the day and was 98.1 F at 1500. RR has been 20-30s. Lung sounds clear and dim. Patient has been on room air. Levophed turned off at 1249. SBP 100s, with MAPs 70s-80s. Patient has been complaining of L) side abdomial pain. 3 loose BMs. Patient was unable to void until 1300, but has had no issues voiding since. UA and urine culture sent to lab. Up to chair/bedside commode. Follow up: Abdominal US scheduled for AM
--- NOTE | 2017-02-09 05:25 | NUR ---
Significant Event: A/OX3. DENIES N/T. MOVES ALL EXTREMITIES SPONTANEOUSLY AND TO COMMAND. PERRLA. PAIN TO ABDOMEN. CONTROLLED WITH FENTANYL PUSHES, TYLENOL AND TRAMADOL. HIGHEST TEMP 100.8. SBP IN 110S-120S. HEART RATE 90S-110S. RESPIRATIONS IN THE 30S- DUE TO PAIN. LUNGS CLEAR ON ROOM AIR. MAPS IN 70S-90S. IV TO LEFT AC RUNNING NS AT 150/HR AND INTERMITTENT ANTIBIOTICS. IV TO RIGHT AC SALINE LOCKED. UP 1 ASSIST. REGULAR DIET. Follow up:ABDOMINAL U/S TODAY.
[2017-02-09 06:37] LABS: HEMATOCRIT 29.9 % (33.0-46.0); HEMOGLOBIN 10.2 g/dL (10.0-15.0); MCH 32.2 pg (27.0-34.0); MCHC 34.1 gm/dL (32.0-36.5); MCV 94.3 fl (83.0-98.0); MPV 11.6 fl (9.4-12.4); RBC 3.17 M/uL (3.50-5.50); RDW-CV 14.1 % (11.9-14.6); WBC 10.4 K/uL (4.0-11.0)
[2017-02-09 06:40] LABS: PLATELET COUNT 79 K/uL (150-450)
[2017-02-09 06:56] LABS: ALBUMIN 2.1 gm/dL (3.5-5.0); MAGNESIUM 1.6 mg/dL (1.8-2.6); TOTAL PROTEIN 5.3 g/dL (6.0-8.4)
[2017-02-09 06:59] LABS: CALCIUM 6.8 mg/dL (8.5-10.5); TOTAL BILIRUBIN 0.5 mg/dL (0.0-1.5)
[2017-02-09 07:56] LABS: ABSOLUTE NEUTROPHIL CT (ANC) 9.5 K/uL (1.8-7.8); BANDED NEUTROPHIL # 2.1 K/uL (0.0-0.1); BANDED NEUTROPHILS % 20 %; LYMPHOCYTE # 0.3 K/uL (0.8-4.0); LYMPHOCYTE % 3 %; MONOCYTE # 0.4 K/uL (0.0-1.0); SEGMENTED NEUTROPHIL # 7.4 K/uL (1.8-7.8); SEGMENTED NEUTROPHIL % 71 %
[2017-02-09] MEDS ORDERED: BENTYL10 MG PO (10:15)
[2017-02-09] MEDS ORDERED: PROTONIX40 MG PO (10:15)
[2017-02-09] MEDS ORDERED: TRAZODONE HCL50 MG PO (10:17)
--- NOTE | 2017-02-09 11:39 | NUR ---
Significant Event: Patient transferred from NTU/ICU to PCU at 1050 per w/c accompanied by this nurse and transport staff. a/o x 3. pain to left side of abdomen that radiates around to the back. stated numbness/tingling to bilateral hands "since last evening". Takes meds whole. regular diet. refused breakfast. c/o abdominal pain and decreased appetite. voids per bathroom. scant amount of stool this am- green color and mucous consistency. sent to lab to test for Cdiff. refused nicotine patch. took meds whole. IV to right anticutibal saline locked. IV to left aticubital with NS infusing at 150ml/hr. ambulates with gait belt and one assist. gait steady and slow due to pain. Potassium this am 3.0, magnesium 1.6, plts 79. tele- sinus tach. Pending test- ultrasound of the abdomen and kidneys. temperature this am 99.0.
--- NOTE | 2017-02-09 12:27 | NUR ---
Introduced self and care management services to patient and spouse at bedside. Lives in [place], [place]. Not feeling well, but better than when she came in, she reports. Visibly short of breath and seems anxious while sitting up in chair. Denies concerns about going home on discharge, spouse and family will assist her as needed. Came in emergently so admissions hasn't gotten insurance information yet, suggested spouse or daughter run down to admissions with the card so we can let insurance know she is here. Will follow and assist with dc planning as needs identified.
--- NOTE | 2017-02-09 16:40 | NUR ---
Significant Event: A/OX3, VSS ON ROOM AIR, SLIGHT TEMP THIS SHIFT OF 100.2. SLIV TO R)AC, L)AC HAS NS @ 100mL/HR WITH IV ABX. FENTANYL GIVEN @ 1322 FOR COMPLAINTS OF L)ABD PAIN, TYLENOL/ULTRAM GIVEN @ 1000. C-DIFF WAS NEGATIVE. NO SKIN ISSUES. PT. GETS UP SBA IN ROOM TO BATHROOM. ULTRASOUND OF ABD/PELVIS DONE TODAY. Follow up: CONTINUE WITH POC.
--- NOTE | 2017-02-10 03:51 | NUR ---
A/OX3. VSS except oxygen sats in 90s on 3L NC overnight. Lung sounds clear, bowel sounds present. C/O pain in left side of abdomen, controlled with tylenol. Temps 98.8-101.5. Bilateral AC IVs. Left AC IV running NS at 100mL/hr with IV ABX. Up with SBA in room.
[2017-02-10 10:59] LABS: BICARBONATE 13.6 mmol/L (18.0-23.0); PCO2 25 mmHg (35-45); PO2 69 mmHg (80-90)
[2017-02-10 11:00] LABS: LACTATE 3.19 mEq/L (0.50-1.60)
[2017-02-10 11:13] LABS: HEMATOCRIT 28.1 % (33.0-46.0); HEMOGLOBIN 9.8 g/dL (10.0-15.0); MCH 31.8 pg (27.0-34.0); MCHC 34.9 gm/dL (32.0-36.5); MCV 91.2 fl (83.0-98.0); MPV 11.6 fl (9.4-12.4); PLATELET COUNT 78 K/uL (150-450); RBC 3.08 M/uL (3.50-5.50); RDW-CV 13.6 % (11.9-14.6); WBC 10.1 K/uL (4.0-11.0)
[2017-02-10 11:32] LABS: ALBUMIN 2.1 gm/dL (3.5-5.0); ALK PHOS 125 IU/L (33-138); ALT 38 IU/L (12-78); AST 45 IU/L (10-40); CALCIUM 7.5 mg/dL (8.5-10.5); CHLORIDE 111 mMol/L (96-110); CREATININE 0.7 mg/dL (0.5-1.1); ESTIMATED GFR (MDRD EQUATION) > 60; SODIUM 138 mMol/L (135-145); TOTAL PROTEIN 5.8 g/dL (6.0-8.4)
[2017-02-10 11:34] LABS: BLOOD UREA NITROGEN 10 mg/dL (6-24); CO2 16 mMol/L (22-32); TOTAL BILIRUBIN 0.7 mg/dL (0.0-1.5)
[2017-02-10 11:56] LABS: ABSOLUTE NEUTROPHIL CT (ANC) 9.3 K/uL (1.8-7.8); BANDED NEUTROPHIL # 1.8 K/uL (0.0-0.1); BANDED NEUTROPHILS % 18 %; LYMPHOCYTE # 0.6 K/uL (0.8-4.0); LYMPHOCYTE % 6 %; MONOCYTE # 0.2 K/uL (0.0-1.0); SEGMENTED NEUTROPHIL # 7.5 K/uL (1.8-7.8); SEGMENTED NEUTROPHIL % 74 %
--- NOTE | 2017-02-10 14:51 | NUR ---
Rapid response called at 1015 for respiratory distress. Patient HR 130s-150s, RR 50s with sats 80s, T of 103.8 increase in L)lower abd pain with shooting pain down left leg. Bipap initiated. CXR/ABG and lab obtained. Patient improved greatly with bipap. IVF dc'd. 2d echo ordered. K+ replace. Repeat blood cultures.
--- NOTE | 2017-02-10 17:08 | NUR ---
Significant Event: Pt alert and oriented x3. Currently rates pain 4/10 to LL abdomen, states tolerable. Rapid reponse called today due to respiratory distress, see note for further details. [facility] and xanax given at 1000. Fentanyl at 1014. Morphine at 1030 for air hunger. Toradol at 1047 for fever. Saline lock to left anticubital, flushes well. IV infusing potassium chloride into right anticubital. Garibay catheter inserted at 1230. Blood culters, ABGs, echo, and chest x-ray done today. Vital signs currently stable. Bowel sounds hypoactive. Follow up: Continue plan of care. Continue antibiotics.
[2017-02-11 03:54] LABS: HEMATOCRIT 25.4 % (33.0-46.0); HEMOGLOBIN 8.6 g/dL (10.0-15.0); MCH 31.3 pg (27.0-34.0); MCHC 33.9 gm/dL (32.0-36.5); MCV 92.4 fl (83.0-98.0); MPV 11.9 fl (9.4-12.4); PLATELET COUNT 63 K/uL (150-450); RBC 2.75 M/uL (3.50-5.50); RDW-CV 13.8 % (11.9-14.6); WBC 9.1 K/uL (4.0-11.0)
[2017-02-11 04:07] LABS: BLOOD UREA NITROGEN 9 mg/dL (6-24); CALCIUM 7.5 mg/dL (8.5-10.5); CHLORIDE 109 mMol/L (96-110); CO2 24 mMol/L (22-32); CREATININE 0.7 mg/dL (0.5-1.1); ESTIMATED GFR (MDRD EQUATION) > 60; MAGNESIUM 1.7 mg/dL (1.8-2.6); SODIUM 139 mMol/L (135-145)
[2017-02-11 04:08] LABS: ALBUMIN 1.7 gm/dL (3.5-5.0); ANION GAP 8.9 (10.0-19.0); INR - (THERAPEUTIC) 1.24 (0.92-1.07); PHOSPHORUS 1.7 mg/dL (2.5-4.9); POTASSIUM 2.9 mMol/L (3.7-5.1); PROTIME 13.1 SECONDS (9.8-11.4)
[2017-02-11 04:52] LABS: ABSOLUTE NEUTROPHIL CT (ANC) 7.8 K/uL (1.8-7.8); BANDED NEUTROPHIL # 1.6 K/uL (0.0-0.1); BANDED NEUTROPHILS % 18 %; LYMPHOCYTE # 0.6 K/uL (0.8-4.0); LYMPHOCYTE % 7 %; MONOCYTE # 0.6 K/uL (0.0-1.0); SEGMENTED NEUTROPHIL # 6.2 K/uL (1.8-7.8); SEGMENTED NEUTROPHIL % 68 %
--- NOTE | 2017-02-11 05:27 | NUR ---
Significant Event: Follow up: PATIENT A/OX3, MEX4, TMAX 103.1, HR 70-110, BP NORMAL, NORCO GIVEN X1, TYLENOL X4, KOEHLER IN PLACE AND CLEANED
[2017-02-11 15:16] LABS: CPK 32 IU/L (21-215)
--- NOTE | 2017-02-11 15:18 | NUR ---
Significant Event: Pt alert and oriented x3. Toradol and ultram given at 1152 for pain. Tylenol and norco given at 1257 for pain and fever. IV inserted into left anterior forearm. Garibay catheter DCd at 1125. Oxygen requirements 2-4L this shift. Cardiology consult, trending cardiac enzymes. Magnesium and potassium replaced. Lopressor started today. Temp high 101.1, notified and vanco ordered. Follow up: Continue plan of care.
[2017-02-12 01:29] LABS: HEMATOCRIT 23.6 % (33.0-46.0); HEMOGLOBIN 8.1 g/dL (10.0-15.0); MCH 31.8 pg (27.0-34.0); MCHC 34.3 gm/dL (32.0-36.5); MCV 92.5 fl (83.0-98.0); MPV 11.9 fl (9.4-12.4); RBC 2.55 M/uL (3.50-5.50); RDW-CV 13.7 % (11.9-14.6); WBC 12.5 K/uL (4.0-11.0)
[2017-02-12 01:32] LABS: PLATELET COUNT 87 K/uL (150-450)
[2017-02-12 01:48] LABS: ALK PHOS 75 IU/L (33-138); ALT 23 IU/L (12-78); ANION GAP 10.2 (10.0-19.0); AST 19 IU/L (10-40); BLOOD UREA NITROGEN 8 mg/dL (6-24); CHLORIDE 112 mMol/L (96-110); CO2 21 mMol/L (22-32); CREATININE 0.6 mg/dL (0.5-1.1); ESTIMATED GFR (MDRD EQUATION) > 60; MAGNESIUM 1.5 mg/dL (1.8-2.6); POTASSIUM 3.2 mMol/L (3.7-5.1); SODIUM 140 mMol/L (135-145)
[2017-02-12 01:54] LABS: ALBUMIN 1.5 gm/dL (3.5-5.0); CALCIUM 7.1 mg/dL (8.5-10.5); PHOSPHORUS 1.4 mg/dL (2.5-4.9); TOTAL BILIRUBIN 0.5 mg/dL (0.0-1.5); TOTAL PROTEIN 4.8 g/dL (6.0-8.4)
[2017-02-12 02:12] LABS: ABSOLUTE NEUTROPHIL CT (ANC) 11.3 K/uL (1.8-7.8); BANDED NEUTROPHIL # 2.4 K/uL (0.0-0.1); BANDED NEUTROPHILS % 19 %; LYMPHOCYTE # 0.5 K/uL (0.8-4.0); LYMPHOCYTE % 4 %; MONOCYTE # 0.6 K/uL (0.0-1.0); SEGMENTED NEUTROPHIL # 8.9 K/uL (1.8-7.8); SEGMENTED NEUTROPHIL % 71 %
--- NOTE | 2017-02-12 04:49 | NUR ---
Pt transfer from OR intubated with 7.5 ETT secured at 20 teeth. Lung sounds slightly coarse, sxn small-moderate thick cream with strong Pt cough. Mini BAL collected. Initial vent settings A/C mode 14, TV 450, P5. Changed to CPAP this AM, Pt awake following commands. Will continue with SBT and poss extubate
[2017-02-12 05:36] LABS: HEMATOCRIT 24.3 % (33.0-46.0); HEMOGLOBIN 8.5 g/dL (10.0-15.0); MCH 32.2 pg (27.0-34.0); MPV 11.9 fl (9.4-12.4); PLATELET COUNT 94 K/uL (150-450); RBC 2.64 M/uL (3.50-5.50); RDW-CV 13.7 % (11.9-14.6)
[2017-02-12 05:49] LABS: ANION GAP 13.7 (10.0-19.0); BLOOD UREA NITROGEN 6 mg/dL (6-24); CHLORIDE 110 mMol/L (96-110); CO2 21 mMol/L (22-32); CREATININE 0.6 mg/dL (0.5-1.1); ESTIMATED GFR (MDRD EQUATION) > 60; PHOSPHORUS 2.4 mg/dL (2.5-4.9); POTASSIUM 3.7 mMol/L (3.7-5.1); SODIUM 141 mMol/L (135-145)
[2017-02-12 05:54] LABS: ALBUMIN 1.6 gm/dL (3.5-5.0); CALCIUM 7.1 mg/dL (8.5-10.5)
--- NOTE | 2017-02-12 07:12 | NUR ---
Significant Event: Patient sedated on arrival, started propofol to continue sedation. Placed an OG tube to LIS, levine inserted, R) PIV started. Started Fenanyl, titrated off propofol, patient became increasingly more awake, follow commands, nodding appropriatly, writting to communicate. Patient SR to ST, SBP 80s-110s. Lungs sounds slightly course, overbreathes set rate, tolerated CPAP late in shift. Hypoactive bowel sounds, 1 lg BM. Levine has adequate UOP. Replaced 40meq KCL, 30mmol K phos, 2grams mag. Follow up: Extubation.
[2017-02-12 07:50] LABS: ABSOLUTE NEUTROPHIL CT (ANC) 11.4 K/uL (1.8-7.8); BANDED NEUTROPHIL # 1.6 K/uL (0.0-0.1); BANDED NEUTROPHILS % 12 %; LYMPHOCYTE # 0.7 K/uL (0.8-4.0); LYMPHOCYTE % 5 %; MONOCYTE # 0.7 K/uL (0.0-1.0); SEGMENTED NEUTROPHIL # 9.9 K/uL (1.8-7.8); SEGMENTED NEUTROPHIL % 76 %
[2017-02-12 10:51] LABS: HEMOGLOBIN 7.9 g/dL (10.0-15.0); MCH 31.6 pg (27.0-34.0); MCHC 34.3 gm/dL (32.0-36.5); MPV 11.9 fl (9.4-12.4); PLATELET COUNT 102 K/uL (150-450); RDW-CV 13.8 % (11.9-14.6); WBC 13.4 K/uL (4.0-11.0)
[2017-02-12 11:09] LABS: ALK PHOS 75 IU/L (33-138); ALT 21 IU/L (12-78); ANION GAP 10.6 (10.0-19.0); AST 16 IU/L (10-40); BLOOD UREA NITROGEN 6 mg/dL (6-24); CHLORIDE 112 mMol/L (96-110); CO2 23 mMol/L (22-32); CREATININE 0.4 mg/dL (0.5-1.1); MAGNESIUM 1.9 mg/dL (1.8-2.6); POTASSIUM 3.6 mMol/L (3.7-5.1); SODIUM 142 mMol/L (135-145); TOTAL BILIRUBIN 0.5 mg/dL (0.0-1.5); TOTAL PROTEIN 5.1 g/dL (6.0-8.4)
[2017-02-12 11:10] LABS: ALBUMIN 1.5 gm/dL (3.5-5.0); CALCIUM 7.2 mg/dL (8.5-10.5)
[2017-02-12 11:32] LABS: ABSOLUTE NEUTROPHIL CT (ANC) 12.3 K/uL (1.8-7.8); BANDED NEUTROPHIL # 1.5 K/uL (0.0-0.1); BANDED NEUTROPHILS % 11 %; LYMPHOCYTE # 0.5 K/uL (0.8-4.0); LYMPHOCYTE % 4 %; MONOCYTE # 0.4 K/uL (0.0-1.0); SEGMENTED NEUTROPHIL # 10.9 K/uL (1.8-7.8); SEGMENTED NEUTROPHIL % 81 %
--- NOTE | 2017-02-12 17:06 | NUR ---
PT A/O, SEDATED ON PRECEDEX AT 0.4 AND FENT GTT AT 75. MOVES ALL EXT EQUALLY AND HAS STRONG SPONT COUGH/GAG. PERRL AND 2B, FOLLOWS ALL COMMANDS. VSS, HR 110-120 THIS AM AND DOWN TO 70-80'S THIS AFTERNOON, RUPESH GTT TO KEEP MAP >65 CURRENTLY RUNNING AT 1.0. PULSES 2+ T/O, EDEMA DOWN TO 1+ FROM 3+, PT IS NEARLY 4L NEGATIVE. LASIX AND ALBUMIN GIVEN WITH PHENOMENAL RESPONSE VIA KOEHLER CATH, BM X2, REMAINS NPO, BS HYPO, OGT WITH MINIMAL GREEN/BILE O/P. R) UPPER ARM PICC PLACED, PIV X2 STILL IN PLACE. VANCO DC'D WITH KATHI CONTINUING, T-MAX 102.7 THIS AM WITH TYLENOL GIVEN AND RE-CHECK OF 98.5 AND AFTERNOON TEMP OF 99.2. CPAP THIS AM, D/T SIGNIFICANT PULM EDEMA, PT PLACED BACK TO A/C WITH PEEP OF 5 AND ON 30% WITH HIGH 90 SATS, WILL RE-CHECK LABS AND CXR IN AM. LS C/D THIS AFTERNOON.
[2017-02-13 04:10] LABS: ANION GAP 12.2 (10.0-19.0); CALCIUM 7.7 mg/dL (8.5-10.5); CREATININE 0.5 mg/dL (0.5-1.1); MAGNESIUM 1.7 mg/dL (1.8-2.6); PHOSPHORUS 3.8 mg/dL (2.5-4.9); POTASSIUM 3.2 mMol/L (3.7-5.1)
[2017-02-13 04:20] LABS: HEMATOCRIT 24.1 % (33.0-46.0); HEMOGLOBIN 8.1 g/dL (10.0-15.0); MCH 31.5 pg (27.0-34.0); MCHC 33.6 gm/dL (32.0-36.5); MCV 93.8 fl (83.0-98.0); MPV 12.4 fl (9.4-12.4); RBC 2.57 M/uL (3.50-5.50); RDW-CV 13.9 % (11.9-14.6); WBC 14.1 K/uL (4.0-11.0)
[2017-02-13 04:22] LABS: PLATELET COUNT 155 K/uL (150-450)
--- NOTE | 2017-02-13 05:31 | NUR ---
PT. ON VENT AT 30% FIO2 WITH SATS 94-96%. ETCO2 36-38. BREATH SOUNDS CLEAR AND DIMINISHED T/O. SUCTIONED A SCANT AMOUNT OF THIN YELLOW SECRETIONS. WILL TRY TO WEAN AND EXTUBATE TODAY.
[2017-02-13 06:18] LABS: ABSOLUTE NEUTROPHIL CT (ANC) 11.6 K/uL (1.8-7.8); BANDED NEUTROPHIL # 1.3 K/uL (0.0-0.1); BANDED NEUTROPHILS % 9 %; LYMPHOCYTE # 1.4 K/uL (0.8-4.0); LYMPHOCYTE % 10 %; SEGMENTED NEUTROPHIL # 10.3 K/uL (1.8-7.8); SEGMENTED NEUTROPHIL % 73 %
--- NOTE | 2017-02-13 10:26 | NUR ---
A - PT SCREENED D/T LOS. EXTUBATED THIS AM. K+ 3.2, GLU 88, BUN/SUPERIOR COURT JUDGE 12/0.5, ALB 2.0, WBC 14.1. PERTINENT MEDS: LASIX, PROTONIX. PT IS NPO...ANTICIPATE PT WILL HAVE DIET ORDERED SOON. INTAKE MOSTLY REFUSED PRIOR TO INTUBATION. EST NEEDS: [id number] KCALS, 63-78 GM PROTEIN, 1 ML/KCAL FLUIDS. D - AT RISK INADEQUATE ORAL INTAKE R/T DECREASED APPETITE AEB INTAKE RECORD. I - GOAL: 25-50% INTAKE BY NEXT REVIEW. M/E - WILL OFFER ENSURE BID W/ BF AND DINNER WHEN DIET RESUMES AND F/U IN 2-4 DAYS.
--- NOTE | 2017-02-13 17:31 | NUR ---
VSS, RUPESH GTT AT 0.5, DOBUT CONT AT 2 AND LASIX IVP Q12H WITH KOEHLER DC'D AND PT NEGATIVE <1000 TODAY. BM X2, FAIR ORAL INTAKE, NPO AT MN FOR PLANNED DRAIN PLACEMENT PER IR IN AM TO L) RENAL ABCESS SITE. UP WITH 1PA, NORCO GIVEN FOR MILD H/A PAIN. IVF CONT AT 20MLS/HR PER R) UPPER ARM PICC AND PIV X2 S.L. REPLACED MG AND K TODAY, WITH AM LABS ORDERED. EXTUBATED AT 0835 ON 3LNC AND LS C/D AND ADEQ SPONT COUGH PRESENT WITH MINIMAL WHITE/CREAM SECRETIONS AND SATS MID 90'S.
--- NOTE | 2017-02-14 04:28 | NUR ---
Significant Event: Pt is alert and orineted x3. Pupils are equal and reactive. Moves all extremities spontaneously and to command. Ambulates with a 1 assist. Pt on a RUPESH gtt to keep maps greater than 65 this shift. Pt on 3L of O2 via NC. Pt stands and pivots to the bedside commode to void. levine was D/C prior to this shift. Pt has voided well since. Bowel sounds are active, no BM this shift. PIV in place and PICC to the R) upper arm. Follow up: Drain placement this morning.
[2017-02-14 05:36] LABS: BLOOD UREA NITROGEN 7 mg/dL (6-24); CALCIUM 7.9 mg/dL (8.5-10.5); CHLORIDE 100 mMol/L (96-110); CREATININE 0.4 mg/dL (0.5-1.1); MAGNESIUM 1.7 mg/dL (1.8-2.6); PHOSPHORUS 2.9 mg/dL (2.5-4.9); POTASSIUM 3.1 mMol/L (3.7-5.1); SODIUM 139 mMol/L (135-145)
[2017-02-14 05:42] LABS: ALBUMIN 1.8 gm/dL (3.5-5.0); ANION GAP 7.1 (10.0-19.0); CO2 35 mMol/L (22-32)
[2017-02-14 05:49] LABS: BASOPHIL % 0.2 %; EOSINOPHIL # 0.2 K/uL (0.0-0.5); EOSINOPHIL % 1.5 %; HEMATOCRIT 23.9 % (33.0-46.0); IMMATURE GRANULOCYTE # 0.1 K/uL (0.0-0.3); LYMPHOCYTE # 1.1 K/uL (0.8-4.0); LYMPHOCYTE % 8.6 %; MCV 94.5 fl (83.0-98.0); MONOCYTE # 0.8 K/uL (0.0-1.0); MONOCYTE % 6.2 %; MPV 11.4 fl (9.4-12.4); NEUTROPHIL # (ANC) 10.3 K/uL (1.8-7.8); NEUTROPHIL % 82.5 %; NRBC % 0 /100WBC (0-0.00); RBC 2.53 M/uL (3.50-5.50); RDW-CV 13.5 % (11.9-14.6); WBC 12.5 K/uL (4.0-11.0)
[2017-02-14 05:50] LABS: HEMOGLOBIN 7.9 g/dL (10.0-15.0); MCH 31.2 pg (27.0-34.0); MCHC 33.1 gm/dL (32.0-36.5); PLATELET COUNT 268 K/uL (150-450)
[2017-02-14 05:51] LABS: INR - (THERAPEUTIC) 1.23 (0.92-1.07); PROTIME 12.9 SECONDS (9.8-11.4)
--- NOTE | 2017-02-14 16:35 | NUR ---
PT A/OX3, VSS, T-MAX 99.2, NORCO GIVEN X2 AND ULTRAM X1 THIS AFTERNOON. C/O L) LATERAL FLANK/BACK PAIN POST DRAIN PLACEMENT. SEROSANG TO DRAIN TUBING BUT NONE TO BE MEASURED. GRAM STAIN AND CULTURE SENT WITH NEGATIVE RESULTS THUS FAR. R)PICC CONT WITH NS AT 20MLS/HR, MADE PCU STATUS WITH PRESSORS OFF SINCE 0500. K-PAD PLACED TO L) FLANK/BACK WITH MILD RELIEF. UP TO COMMODE WITH 1PA AND ADEQ UOP AND NEGATIVE THIS SHIFT; LASIX CHANGED TO PO. MEROPENEM CONT, PIV X1 WITH DRSG CHANGED D/T PT NOT LIKING CLEAR PLASTIC TAPE. NO BM, FAIR ORAL INTAKE, DENIES N/V.
--- NOTE | 2017-02-15 05:31 | NUR ---
Significant Event: TRANSFERRED OUT OF ICU AT 2220. ON 2L O2. HAVING A GREAT DEAL OF PAIN. TOOK XANAX WHEN TRANSFERRED DOWN AND DID NOT TAKE ANYTHING ELSE UNTIL 0430 WHEN A NORCO AND TRAMADOL WAS GIVEN. DRAIN IN L) BACK PATENT WITH 5ML OF DRAINAGE. UP WITH STANDBY ASSIST. VOIDING WELL IN BR. MAX TEMP OF 100.2 WHILE STILL ON ICU. Follow up:
[2017-02-15 06:34] LABS: BASOPHIL % 0.2 %; BLOOD UREA NITROGEN 7 mg/dL (6-24); CHLORIDE 98 mMol/L (96-110); CREATININE 0.4 mg/dL (0.5-1.1); EOSINOPHIL # 0.1 K/uL (0.0-0.5); EOSINOPHIL % 0.6 %; HEMATOCRIT 25.9 % (33.0-46.0); HEMOGLOBIN 8.7 g/dL (10.0-15.0); IMMATURE GRANULOCYTE # 0.1 K/uL (0.0-0.3); IMMATURE GRANULOCYTE % 0.6 %; LYMPHOCYTE # 0.9 K/uL (0.8-4.0); LYMPHOCYTE % 7.6 %; MAGNESIUM 1.7 mg/dL (1.8-2.6); MCH 31.9 pg (27.0-34.0); MCHC 33.6 gm/dL (32.0-36.5); MCV 94.9 fl (83.0-98.0); MONOCYTE # 0.8 K/uL (0.0-1.0); MPV 10.9 fl (9.4-12.4); NEUTROPHIL # (ANC) 10.6 K/uL (1.8-7.8); NRBC % 0 /100WBC (0-0.00); PHOSPHORUS 2.9 mg/dL (2.5-4.9); POTASSIUM 3.5 mMol/L (3.7-5.1); RBC 2.73 M/uL (3.50-5.50); RDW-CV 13.5 % (11.9-14.6); SODIUM 139 mMol/L (135-145); WBC 12.4 K/uL (4.0-11.0)
[2017-02-15 06:36] LABS: ALBUMIN 1.9 gm/dL (3.5-5.0); ANION GAP 9.5 (10.0-19.0); CO2 35 mMol/L (22-32)
[2017-02-15 06:37] LABS: PLATELET COUNT 367 K/uL (150-450)
--- NOTE | 2017-02-15 15:44 | NUR ---
Significant Event:VSS.RA.C/O BACK/LEFT SIDE PAIN THIS SHIFT. NORCO GIVEN THIS AM, AND ULTRAM GIVEN X1 THIS AFTERNOON WITH RELIEF. CHECK EMAR FOR TIMES.CYRIL DRAIN REMAINS INTACT TO LT LOWER BACK. FLUSHED WITH 5 MLS THIS SHIFT. STAND BY ASSIST. APPETITE BETTER BUT REMAINS POOR. Follow up:WILL CONTINUE TO MONITOR PER PLAN OF CARE.
[2017-02-16 05:17] LABS: CREATININE 0.4 mg/dL (0.5-1.1)
--- NOTE | 2017-02-16 05:33 | NUR ---
Significant Event: UP WITH MINIMAL ASSIST TO BR. GAIT SLIGHLTY UNSTEADY. O2 AT 1L FOR PART OF THE NIGHT. SOMA AND TRAMADOL GIVEN X1 FOR PAIN WITH VERY LITTLE RELIEF. NORCO AND XANAX GIVEN WITH MOST OF THE PAIN RELIEVED. NPO AFTER MIDNIGHT FOR A HEART CATH TODAY. NS STARTED AT 75ML/HR. Follow up:
--- NOTE | 2017-02-16 11:18 | NUR ---
A-NUTRITION F/U TRANSFER OUT OF ICU. DRAIN TO L)BACK PLACED. HEART CATH TODAY [facility] (STANDING WT): 43.9 KG; WT ON 02/14 (BED SCALE): 51.7 KG. WAS ON IV LASIX; CHANGED TO PO ON 02/14. ? ACCURACY OF WTS D/T A 17 LB WT LOSS X 2 DAYS LABS: NA 139, K+ 3.5, GLU 80, BUN 7, OPERATION SUPERVISOR 0.4, ALB 1.9 MEDS: MENTIONED ABOVE, LASIX IV CHANGED TO PO DIET RX: NPO D/T HEART CATH TODAY. PO INTAKE HAS BEEN POOR SINCE LAST F/U; REF-75%; AVG IS 25%. APPETITE WAS A LITTLE BETTER YESTERDAY. EST NUTR NEEDS: [id number] KCALS AND 63-78 GM PROTEIN D-AT NUTRITION RISK W/INADEQUATE ORAL INTAKE R/T ALTERED APPETITE AEB INTAKE RECORDS, WT LOSS. I-1)ENSURE ENLIVE TO RESTART WHEN DIET RESUMED 2)IF PO INTAKE DOES NOT IMPROVE, IF DESIRED, CONSIDER ENTERAL NUTRITION SUPPORT. M/E-GOAL: PO INTAKE >/=50% BY NEXT F/U 1)F/U PO INTAKE, SUPPLEMENT, WT, AND POC IN 3-5 DAYS 2)ASSIST NEEDED
--- NOTE | 2017-02-16 15:52 | NUR ---
Significant Event: Alert and oriented X3. Room air. SBP 90's and 100's. HR 60's, 70's and 80's. CYRIL drain to right flank, 5 ml out this shift. CYRIL drain flushed with 5 ml. [place] given X 2, last given at 1600. Ultram given X 1, last given at 1205. Xanax given X 1 at 1205. Heart Cath done this shift. Right radial approach and right groin approach. Right radial dressed with bandaid and coban, no drainage. Right groin, dressing clean dry and intact and site soft. PICC to upper right arm, flushes well with good blood return and saline locked. Pleasant and cooperative with cares. Follow up:
--- NOTE | 2017-02-17 04:21 | NUR ---
Significant Event: A/0 X 4, ABMULATES STAND BY ASSIST. WAS HYPOTENSIVE FIRST HALF OF SHIFT WITH SBP'S IN LOW 90'S. SHE DID HAVE EXCELLENT PO INTAKE AND SBP'S 2ND HALF OF SHIFT WERE BOTH 110. ALL OTHER VSS ON RA, AFEBRILE. BOTH CATH SITES (RIGHT RADIAL AND RIGHT GROIN) HAVE HAD NO COMPLICATIONS. ON IV MEROPENAM. COMPPRESSION BULB DRAIN TO LEFT KIDNEY HAD 5 ML OUTPUT. IT IS TO BE FLUSHED WITH 5 ML BID. 1 NORCO GIVEN X 1 AT 0100 FOR RIGHT FLANK PAIN WITH RELIEF NOTED. Follow up:
[2017-02-17 10:30] LABS: BASOPHIL # 0.1 K/uL (0.0-0.2); BASOPHIL % 0.5 %; EOSINOPHIL # 0.1 K/uL (0.0-0.5); EOSINOPHIL % 0.5 %; HEMATOCRIT 28.6 % (33.0-46.0); HEMOGLOBIN 9.6 g/dL (10.0-15.0); IMMATURE GRANULOCYTE # 0.2 K/uL (0.0-0.3); IMMATURE GRANULOCYTE % 1.4 %; LYMPHOCYTE # 1.2 K/uL (0.8-4.0); LYMPHOCYTE % 8.9 %; MCH 32.2 pg (27.0-34.0); MCHC 33.6 gm/dL (32.0-36.5); MONOCYTE # 0.7 K/uL (0.0-1.0); MONOCYTE % 5.5 %; MPV 10.5 fl (9.4-12.4); NEUTROPHIL # (ANC) 10.8 K/uL (1.8-7.8); NEUTROPHIL % 83.2 %; NRBC % 0 /100WBC (0-0.00); RBC 2.98 M/uL (3.50-5.50); RDW-CV 13.7 % (11.9-14.6)
[2017-02-17 10:37] LABS: PLATELET COUNT 598 K/uL (150-450)
[2017-02-17 10:44] LABS: ALBUMIN 2.2 gm/dL (3.5-5.0); ALK PHOS 72 IU/L (33-138); ALT 36 IU/L (12-78); ANION GAP 11.4 (10.0-19.0); AST 37 IU/L (10-40); BLOOD UREA NITROGEN 7 mg/dL (6-24); CALCIUM 8.4 mg/dL (8.5-10.5); CHLORIDE 105 mMol/L (96-110); CO2 27 mMol/L (22-32); CREATININE 0.5 mg/dL (0.5-1.1); POTASSIUM 3.4 mMol/L (3.7-5.1); SODIUM 140 mMol/L (135-145); TOTAL PROTEIN 6.8 g/dL (6.0-8.4)
[2017-02-17 10:53] LABS: TOTAL BILIRUBIN 0.3 mg/dL (0.0-1.5)
--- NOTE | 2017-02-17 11:27 | NUR ---
Talked with patient, very tired and weak. Asked if physician has indicated when pt may be ready for discharge and she said she didn't know. Asked if she has any concerns about going home on discharge and she said she does not. She said her and family will help her at home on discharge, denies needs. Packing Machine Tender will follow.
--- NOTE | 2017-02-17 15:58 | NUR ---
Significant Event: ALERT & ORIENTED. SBP 96-108, HR 70-80, AFEBRILE, ROOM AIR. SBA. PICC TO R)ARM SL WITH MEROPENEM Q6 HOURS. FLUSH DRAIN BID WITH 5ML, ~3ML OUTPUT. POOR APPETITE. VOIDING OK. PLEASANT & COOPERATIVE WITH CARES. Follow up: IV ABX AND DRAIN TO KIDNEY ABSCESS STILL IN PLACE, THEN READY TO DC?
[2017-02-18 12:51] LABS: BASOPHIL # 0.1 K/uL (0.0-0.2); BASOPHIL % 0.6 %; EOSINOPHIL # 0.1 K/uL (0.0-0.5); EOSINOPHIL % 0.7 %; HEMATOCRIT 24.5 % (33.0-46.0); IMMATURE GRANULOCYTE # 0.2 K/uL (0.0-0.3); IMMATURE GRANULOCYTE % 1.2 %; LYMPHOCYTE # 1.5 K/uL (0.8-4.0); LYMPHOCYTE % 12.5 %; MCH 31.2 pg (27.0-34.0); MCHC 32.2 gm/dL (32.0-36.5); MCV 96.8 fl (83.0-98.0); MONOCYTE # 0.7 K/uL (0.0-1.0); MONOCYTE % 5.6 %; MPV 10.6 fl (9.4-12.4); NEUTROPHIL # (ANC) 9.7 K/uL (1.8-7.8); NEUTROPHIL % 79.4 %; NRBC % 0 /100WBC (0-0.00); PLATELET COUNT 611 K/uL (150-450); RBC 2.53 M/uL (3.50-5.50); RDW-CV 13.7 % (11.9-14.6); WBC 12.2 K/uL (4.0-11.0)
[2017-02-18 12:52] LABS: HEMOGLOBIN 7.9 g/dL (10.0-15.0)
[2017-02-18 12:54] LABS: ALBUMIN 2.1 gm/dL (3.5-5.0); ALK PHOS 61 IU/L (33-138); ALT 29 IU/L (12-78); ANION GAP 10.8 (10.0-19.0); AST 26 IU/L (10-40); BLOOD UREA NITROGEN 7 mg/dL (6-24); CALCIUM 8.1 mg/dL (8.5-10.5); CHLORIDE 106 mMol/L (96-110); CO2 27 mMol/L (22-32); CREATININE 0.4 mg/dL (0.5-1.1); MAGNESIUM 1.8 mg/dL (1.8-2.6); PHOSPHORUS 3.1 mg/dL (2.5-4.9); POTASSIUM 3.8 mMol/L (3.7-5.1); SODIUM 140 mMol/L (135-145); TOTAL BILIRUBIN 0.3 mg/dL (0.0-1.5); TOTAL PROTEIN 6.2 g/dL (6.0-8.4)
[2017-02-18 16:17] LABS: BASOPHIL # 0.1 K/uL (0.0-0.2); BASOPHIL % 0.5 %; EOSINOPHIL # 0.1 K/uL (0.0-0.5); EOSINOPHIL % 0.7 %; HEMATOCRIT 24.7 % (33.0-46.0); HEMOGLOBIN 8.1 g/dL (10.0-15.0); IMMATURE GRANULOCYTE # 0.1 K/uL (0.0-0.3); IMMATURE GRANULOCYTE % 1.2 %; LYMPHOCYTE # 1.4 K/uL (0.8-4.0); LYMPHOCYTE % 11.7 %; MCH 31.8 pg (27.0-34.0); MCHC 32.8 gm/dL (32.0-36.5); MCV 96.9 fl (83.0-98.0); MONOCYTE # 0.7 K/uL (0.0-1.0); MONOCYTE % 6.3 %; MPV 10.7 fl (9.4-12.4); NEUTROPHIL # (ANC) 9.4 K/uL (1.8-7.8); NEUTROPHIL % 79.6 %; NRBC % 0 /100WBC (0-0.00); PLATELET COUNT 570 K/uL (150-450); RBC 2.55 M/uL (3.50-5.50); RDW-CV 13.7 % (11.9-14.6); WBC 11.8 K/uL (4.0-11.0)
--- NOTE | 2017-02-18 17:14 | NUR ---
Significant Event: A/Ox3. SBP-80-110s. MAP 55-65. P-60-70s. NSR. Afebrile. Room air. Lungs clear. R) UA PICC saline locked. Mepropenem D/C'd and changed to Rocephin IV. Patient was bolus with NS 500ml x2 for hypotension and low MAPS. Patient was asymptomatic while hypotensive. Denies SOB and CP. TRamadol given x2 and [place] given x1 for Flank pain. Nephrostomy tube had 2.5ml of purlent drainage. 5ml flushes to be done every shift. Up with SBA.
--- NOTE | 2017-02-19 04:22 | NUR ---
Significant Event: SBP'S HAVE BEEN BETTER DURING SHIFT, LOW OF 99 TO HIGH OF 106. ALL OTHER VSS ON RA, AFEBRILE. LEFT NEPHROSTOMY TUBE/DRAIN/DRESSING INTACT, HAD 5 ML OUTPUT. IT'S TO BE FLUSHED WITH 5 ML H20 BID. 1 NORCO GIVEN X 1 AT 0310 FOR LEFT FLANK PAIN. PLEASANT AND COOPERATIVE. PER PATIENT, SHE WAS TOLD BY SHE WILL BE HERE FOR ANOTHER DAY OR TWO. Follow up:
[2017-02-19 05:27] LABS: ALBUMIN 2.2 gm/dL (3.5-5.0); ALK PHOS 74 IU/L (33-138); ALT 28 IU/L (12-78); ANION GAP 11.6 (10.0-19.0); AST 25 IU/L (10-40); BLOOD UREA NITROGEN 5 mg/dL (6-24); CALCIUM 8.2 mg/dL (8.5-10.5); CHLORIDE 104 mMol/L (96-110); CO2 28 mMol/L (22-32); CREATININE 0.5 mg/dL (0.5-1.1); MAGNESIUM 1.7 mg/dL (1.8-2.6); PHOSPHORUS 3.3 mg/dL (2.5-4.9); POTASSIUM 3.6 mMol/L (3.7-5.1); SODIUM 140 mMol/L (135-145); TOTAL BILIRUBIN 0.3 mg/dL (0.0-1.5); TOTAL PROTEIN 6.2 g/dL (6.0-8.4)
[2017-02-19 05:33] LABS: CPK 17 IU/L (21-215)
[2017-02-19 05:43] LABS: BASOPHIL # 0.1 K/uL (0.0-0.2); BASOPHIL % 0.6 %; EOSINOPHIL # 0.1 K/uL (0.0-0.5); EOSINOPHIL % 0.5 %; HEMATOCRIT 24.8 % (33.0-46.0); IMMATURE GRANULOCYTE # 0.1 K/uL (0.0-0.3); IMMATURE GRANULOCYTE % 1.1 %; LYMPHOCYTE # 1.3 K/uL (0.8-4.0); LYMPHOCYTE % 10.1 %; MCH 31.3 pg (27.0-34.0); MCHC 32.3 gm/dL (32.0-36.5); MCV 96.9 fl (83.0-98.0); MONOCYTE # 0.9 K/uL (0.0-1.0); MONOCYTE % 6.7 %; MPV 11.2 fl (9.4-12.4); NEUTROPHIL # (ANC) 10.3 K/uL (1.8-7.8); NRBC % 0 /100WBC (0-0.00); PLATELET COUNT 649 K/uL (150-450); RBC 2.56 M/uL (3.50-5.50); RDW-CV 13.6 % (11.9-14.6); WBC 12.7 K/uL (4.0-11.0)
--- NOTE | 2017-02-19 11:54 | NUR ---
A - NUTRITION FOLLOW-UP LABS: K+ 3.6, BUN 5, ALB 2.2, MG 1.7 MEDS: PT IS ON PROZAC DIET: REGULAR W/ ENSURE ENLIVE TID. PT REPORTED GOOD APPETITE. FAMILY HAS BEEN BRINGING IN FOOD SO INTAKE RECORD SHOWS LOW PRECENTAGE. INTAKE 34% X7 MEALS NOTED. LIKES ENSURE ENLIVE, HAD IT ONCE. MOUTH SORE BETTER PER PT. HAD 100% OF BREAKFAST THIS MORNING, READY TO ORDER LUNCH NOW. EST NEEDS: [id number] KCAL, 63-78 GRAMS PROTEIN, FLUID NEEDS: 1ML/KCAL D - INADEQUATE ORAL INTAKE AT TIMES RELATED TO SORE IN MOUTH EVIDENCED BY PO 34% X7 MEALS. I - WILL CONTINUE W/ ENSURE ENLIVE TID. M/E - GOAL: PT WILL BE ABLE TO TOLERATE >50% OF MEALS (MEAL TRAY+FOOD FROM HOME) AND AT LEAST ONE ORAL SUPPLEMENT PER DAY IN 5-6 DAYS.
--- NOTE | 2017-02-19 17:29 | NUR ---
Significant Event: PT IS AOX3. SBP IN THE 90s. TOPROLOL D/C'd DUE TO HYPOTENSION. HR 60-70s. AFEBRILE. R)UA PICC SALINE LOCKED. L)NEPHROSTOMY TUBE HAD 2.5ML OF PURULENT DRAINAGE. FLUSH WITH 5ML EACH SHIFT. PT WAS GIVEN NORCO X1, AT 1601. ULTRAM X1 GIVEN AT 0813. Follow up: CONTINUE WITH PLAN OF CARE
[2017-02-20 04:01] LABS: ALBUMIN 2.2 gm/dL (3.5-5.0); ALK PHOS 75 IU/L (33-138); ALT 25 IU/L (12-78); ANION GAP 10.5 (10.0-19.0); AST 25 IU/L (10-40); BLOOD UREA NITROGEN 6 mg/dL (6-24); CALCIUM 8.3 mg/dL (8.5-10.5); CHLORIDE 103 mMol/L (96-110); CO2 28 mMol/L (22-32); CREATININE 0.5 mg/dL (0.5-1.1); MAGNESIUM 1.8 mg/dL (1.8-2.6); PHOSPHORUS 3.3 mg/dL (2.5-4.9); POTASSIUM 3.5 mMol/L (3.7-5.1); SODIUM 138 mMol/L (135-145); TOTAL PROTEIN 6.4 g/dL (6.0-8.4)
[2017-02-20 04:03] LABS: TOTAL BILIRUBIN 0.2 mg/dL (0.0-1.5)
[2017-02-20 04:09] LABS: BASOPHIL # 0.1 K/uL (0.0-0.2); BASOPHIL % 0.7 %; EOSINOPHIL # 0.1 K/uL (0.0-0.5); EOSINOPHIL % 0.4 %; HEMATOCRIT 25.4 % (33.0-46.0); HEMOGLOBIN 8.1 g/dL (10.0-15.0); IMMATURE GRANULOCYTE # 0.1 K/uL (0.0-0.3); LYMPHOCYTE # 1.3 K/uL (0.8-4.0); LYMPHOCYTE % 10.7 %; MCH 30.9 pg (27.0-34.0); MCHC 31.9 gm/dL (32.0-36.5); MCV 96.9 fl (83.0-98.0); MONOCYTE # 0.8 K/uL (0.0-1.0); MONOCYTE % 6.4 %; MPV 11.1 fl (9.4-12.4); NEUTROPHIL % 80.8 %; NRBC % 0 /100WBC (0-0.00); PLATELET COUNT 673 K/uL (150-450); RBC 2.62 M/uL (3.50-5.50); RDW-CV 13.4 % (11.9-14.6); WBC 12.4 K/uL (4.0-11.0)
--- NOTE | 2017-02-20 04:28 | NUR ---
Significant Event: Patient A/Ox3. VSS on RA. Patient's SBP have remained in the low 100s this shift. 2.5ml out of nephrostomy tube. Tube is causing patient a lot of pain. [place] given x1, tramadol x2. R) radial and R) groin cath sites covered with bandaids. CSM WNL. Patient is up SBA/ad janneth during the day. Follow up: Possible drain removal today?
--- NOTE | 2017-02-20 17:14 | NUR ---
Significant Event:Patient has had [place] twice, but says it is more low back pain/spasms. Also, has had Soma for the back pain/spasms. SBP 90's-100's. Had 2.5 ml out of nephrostomy tube, irrigated at 1700. into see patient, wanted to talk with Radiology and then might dc the tube. Dr. Gould signed off. Patient is anxious to go home. Follow up:Pain control and nephrostomy tube
[2017-02-21 04:08] LABS: ALBUMIN 2.3 gm/dL (3.5-5.0); ALK PHOS 84 IU/L (33-138); ALT 26 IU/L (12-78); ANION GAP 12.2 (10.0-19.0); AST 21 IU/L (10-40); BLOOD UREA NITROGEN 7 mg/dL (6-24); CALCIUM 8.3 mg/dL (8.5-10.5); CHLORIDE 104 mMol/L (96-110); CO2 29 mMol/L (22-32); CREATININE 0.4 mg/dL (0.5-1.1); MAGNESIUM 1.9 mg/dL (1.8-2.6); PHOSPHORUS 4.1 mg/dL (2.5-4.9); POTASSIUM 4.2 mMol/L (3.7-5.1); SODIUM 141 mMol/L (135-145); TOTAL BILIRUBIN 0.2 mg/dL (0.0-1.5)
[2017-02-21 04:24] LABS: BASOPHIL # 0.1 K/uL (0.0-0.2); BASOPHIL % 0.8 %; EOSINOPHIL # 0.1 K/uL (0.0-0.5); EOSINOPHIL % 0.6 %; HEMATOCRIT 24.9 % (33.0-46.0); IMMATURE GRANULOCYTE # 0.1 K/uL (0.0-0.3); IMMATURE GRANULOCYTE % 0.9 %; LYMPHOCYTE % 15.5 %; MCH 31.5 pg (27.0-34.0); MCHC 32.1 gm/dL (32.0-36.5); MONOCYTE # 0.9 K/uL (0.0-1.0); MONOCYTE % 6.9 %; MPV 11.9 fl (9.4-12.4); NEUTROPHIL # (ANC) 9.5 K/uL (1.8-7.8); NEUTROPHIL % 75.3 %; NRBC % 0 /100WBC (0-0.00); PLATELET COUNT 655 K/uL (150-450); RBC 2.54 M/uL (3.50-5.50); RDW-CV 13.5 % (11.9-14.6); WBC 12.6 K/uL (4.0-11.0)
--- NOTE | 2017-02-21 04:55 | NUR ---
Significant Event: PT A&Ox3. VSS on RA. PT c/o lower back pain, received Soma and [place] @[address] Charles has provided orders to remove nephrostomy, but this hasn't been completed by nursing. Nephrostomy had 2mL out. Follow up: Continued pain control and d/c nephrostomy tube. Plan is to discharge to home.
--- NOTE | 2017-02-21 18:59 | NUR ---
Significant Event:Patient's nephrostomy tube dc'd by hospitalist. Patient tolerated well. No drainage noted. Started on Augmentin. Rocephin dc'd. Had Gia once for pain and [facility] for pain. Follow up:Home tomorrow
[2017-02-22 04:45] LABS: ALBUMIN 2.3 gm/dL (3.5-5.0); ALK PHOS 92 IU/L (33-138); ALT 27 IU/L (12-78); ANION GAP 10.9 (10.0-19.0); AST 25 IU/L (10-40); BLOOD UREA NITROGEN 8 mg/dL (6-24); CALCIUM 8.8 mg/dL (8.5-10.5); CHLORIDE 103 mMol/L (96-110); CO2 29 mMol/L (22-32); CREATININE 0.5 mg/dL (0.5-1.1); PHOSPHORUS 3.7 mg/dL (2.5-4.9); POTASSIUM 3.9 mMol/L (3.7-5.1); SODIUM 139 mMol/L (135-145); TOTAL BILIRUBIN 0.2 mg/dL (0.0-1.5); TOTAL PROTEIN 6.9 g/dL (6.0-8.4)
[2017-02-22 04:50] LABS: BASOPHIL # 0.1 K/uL (0.0-0.2); BASOPHIL % 0.8 %; EOSINOPHIL # 0.1 K/uL (0.0-0.5); EOSINOPHIL % 0.4 %; HEMATOCRIT 26.4 % (33.0-46.0); HEMOGLOBIN 8.5 g/dL (10.0-15.0); IMMATURE GRANULOCYTE # 0.1 K/uL (0.0-0.3); IMMATURE GRANULOCYTE % 0.7 %; LYMPHOCYTE # 1.7 K/uL (0.8-4.0); LYMPHOCYTE % 12.3 %; MCH 31.4 pg (27.0-34.0); MCHC 32.2 gm/dL (32.0-36.5); MCV 97.4 fl (83.0-98.0); MONOCYTE # 0.9 K/uL (0.0-1.0); MONOCYTE % 6.8 %; MPV 11.2 fl (9.4-12.4); NEUTROPHIL # (ANC) 10.6 K/uL (1.8-7.8); NRBC % 0 /100WBC (0-0.00); RBC 2.71 M/uL (3.50-5.50); RDW-CV 13.4 % (11.9-14.6); WBC 13.4 K/uL (4.0-11.0)
[2017-02-22 04:51] LABS: PLATELET COUNT 796 K/uL (150-450)
--- NOTE | 2017-02-22 04:54 | NUR ---
Significant Event: PT WITH HEADACHE AT BEGINNING OF SHIFT, MEDICATED WITH NORCO X1. NO OTHER COMPLAINTS THIS SHIFT. UP TO BATHROOM AD CRISTIANA, NO ASSISTANCE REQUIRED. PICC LINE DRESSING CHANGED. Follow up: POSSIBLY HOME TODAY GUI QUEEN RN
--- NOTE | 2017-02-22 17:01 | NUR ---
Significant Event:Patient has been hoping to go home, they kept her today d/t some elevation in her WBC's. Has been up in her room and hallway. Appetite fair. Has had [place] twice and Soma twice for c/o low back soreness and generalized stiffness. Has been afebrile. Follow up:Home tomorrow
--- NOTE | 2017-02-23 04:07 | NUR ---
Significant Event: Patient alert and oriented. VSS on room air. [place] given x1 at 1950 with relief noted. PICC to right upper arm flushes well with good blood return noted. Plans for possible discharge today 02/23/17. Pleasant and cooperative with cares. Rested well through out shift. Follow up: continue, possible discharge
[2017-02-23 04:15] LABS: ALBUMIN 2.3 gm/dL (3.5-5.0); ALK PHOS 97 IU/L (33-138); ALT 32 IU/L (12-78); ANION GAP 9.8 (10.0-19.0); AST 29 IU/L (10-40); BLOOD UREA NITROGEN 7 mg/dL (6-24); CALCIUM 8.5 mg/dL (8.5-10.5); CHLORIDE 103 mMol/L (96-110); CO2 30 mMol/L (22-32); CREATININE 0.5 mg/dL (0.5-1.1); MAGNESIUM 1.9 mg/dL (1.8-2.6); PHOSPHORUS 3.6 mg/dL (2.5-4.9); POTASSIUM 3.8 mMol/L (3.7-5.1); SODIUM 139 mMol/L (135-145); TOTAL PROTEIN 6.7 g/dL (6.0-8.4)
[2017-02-23 04:18] LABS: TOTAL BILIRUBIN 0.3 mg/dL (0.0-1.5)
[2017-02-23 04:21] LABS: BASOPHIL # 0.1 K/uL (0.0-0.2); EOSINOPHIL # 0.1 K/uL (0.0-0.5); EOSINOPHIL % 0.9 %; HEMATOCRIT 25.6 % (33.0-46.0); HEMOGLOBIN 8.2 g/dL (10.0-15.0); IMMATURE GRANULOCYTE # 0.1 K/uL (0.0-0.3); IMMATURE GRANULOCYTE % 0.6 %; LYMPHOCYTE # 1.9 K/uL (0.8-4.0); LYMPHOCYTE % 17.3 %; MCH 31.4 pg (27.0-34.0); MCV 98.1 fl (83.0-98.0); MONOCYTE # 0.9 K/uL (0.0-1.0); MONOCYTE % 8.1 %; MPV 11.7 fl (9.4-12.4); NEUTROPHIL # (ANC) 8.1 K/uL (1.8-7.8); NEUTROPHIL % 72.1 %; NRBC % 0 /100WBC (0-0.00); PLATELET COUNT 747 K/uL (150-450); RBC 2.61 M/uL (3.50-5.50); RDW-CV 13.3 % (11.9-14.6); WBC 11.2 K/uL (4.0-11.0)
[2017-02-23] MEDS ORDERED: AUGMENTIN 875-1 EACH PO (13:48)
[2017-02-23] MEDS ORDERED: FEOSOL325 MG PO (13:49)
--- NOTE | 2017-02-23 16:25 | NUR ---
d-dr stallings pt dc i-nurse did teaching on all meds, teaching on site cares of cath radial/groin and left drain renal, all look good. PICC line dcd intact no problems usings standard nurse protocol. RX given, appts set up and dr Charles notified pt dc. r-no more questions, pt daughter is a nurse will help with pt cares p-dc as ordered
[2017-03-03] MEDS ORDERED: TYLENOL WITH C1 EACH PO (15:32)
== END 2017-02-23 14:00 | disposition disaster alternative care site (69) | DRG 870 ==
LOC: GICU 01:22 → GPCU 02:18 → GICU 02:18 → GPCU 02-09 10:00 → GICU 02-11 21:33 → GPCU 02-14 21:01
PROVIDERS: Internal Medicine; Internal Medicine Cardiovascular Disease; Nurse Practitioner; Radiology Diagnostic Radiology; ADMIT Internal Medicine
DX: A41.51 Sepsis due to Escherichia coli [E. coli] (principal); J96.01 Acute respiratory failure with hypoxia; R65.21 Severe sepsis with septic shock; E43 Unspecified severe protein-calorie malnutrition; I50.21 Acute systolic (congestive) heart failure; D50.9 Iron deficiency anemia, unspecified; F17.200 Nicotine dependence, unspecified, uncomplicated; E87.3 Alkalosis; I16.9 Hypertensive crisis, unspecified; I42.8 Other cardiomyopathies; J90 Pleural effusion, not elsewhere classified; N10 Acute pyelonephritis; N17.9 Acute kidney failure, unspecified; N20.1 Calculus of ureter; E87.6 Hypokalemia; F31.9 Bipolar disorder, unspecified; I73.9 Peripheral vascular disease, unspecified; N15.9 Renal tubulo-interstitial disease, unspecified; B96.20 Unspecified Escherichia coli [E. coli] as the cause of diseases classified elsewhere
CPT/HCPCS: C1729; C1750; C1751; C1769; C1894; C9113; J0696; J1250; J1644; J1650; J1885; J1940; J2185; J2270; J2370; J2405; J2704; J3010; J3370; J3475; J3480; J7030; J7040; J7050; J7060; P9047; Q9967

== ENCOUNTER → 2017-02-08 | Outpatient (CLI) | payer BC ==
[~2017-02-08] MED LIST: AUGMENTIN 875-1 EACH PO; BENTYL10 MG PO; CELEBREX100 MG PO; FEOSOL325 MG PO; FIORICET 50-301 EACH PO; MIRALAX17 GM PO; NORCO 10-325 T1 EACH PO; OMEPRAZOLE40 MG PO; PROTONIX40 MG PO; PROZAC40 MG PO; SOMA350 MG PO; TRAZODONE HCL50 MG PO; TRILEPTAL300 MG PO; TYLENOL WITH C1 EACH PO; XANAX1 MG PO
== END | disposition disaster alternative care site (69) ==
LOC: GAIR 01:52
DX: A41.9 Sepsis, unspecified organism (principal); F31.9 Bipolar disorder, unspecified; D64.9 Anemia, unspecified; K27.9 Peptic ulcer, site unspecified, unspecified as acute or chronic, without hemorrhage or perforation; M51.36 Other intervertebral disc degeneration, lumbar region; R19.7 Diarrhea, unspecified; R11.2 Nausea with vomiting, unspecified; R53.1 Weakness; Z79.891 Long term (current) use of opiate analgesic; Z79.899 Other long term (current) drug therapy; Z88.8 Allergy status to other drugs, medicaments and biological substances
CPT/HCPCS: A0422; A0431; A0436; J2405; J7050

== ENCOUNTER → 2017-03-03 | Day surgery (SDC) | payer BC ==
[~2017-03-03] VITALS: Ht 165.1 cm; Wt 39.9 kg
[~2017-03-03] MED LIST changes: +AUGMENTIN 875-1 EACH PO; +BENTYL10 MG PO; +FEOSOL325 MG PO; +PROTONIX40 MG PO; +TRAZODONE HCL50 MG PO; +TYLENOL WITH C1 EACH PO
--- NOTE | ~2017-03-03 | OR ---
PATIENT'S NAME: ANAM BOLES [facility] AGE: 51 Y [address] ROOM: [place] [address] LOCATION: [facility] ADMIT DATE: 03/03/2017 OR/Procedure Report DISCHARGE DATE: FAMILY PHYSICIAN: Rachel Turpin MD ATTENDING PHYSICIAN: Janak Michael SURGEON: Janak Michael MD BLOCKERS SKIVER: DATE OF PROCEDURE: 03/03/2017 PREOPERATIVE DIAGNOSIS: Left ureter stone. POSTOPERATIVE DIAGNOSIS: Left ureter stone. PROCEDURE PERFORMED: Left ureteroscopy, laser lithotripsy with stent exchange. ANESTHESIA: MAC. COMPLICATIONS: None. INDICATION FOR PROCEDURE: The patient is a 51-year-old female who is status post cystoscopy with left stent placement secondary to a distal left ureter stone and urosepsis. The patient's infection has been treated and now presents for ureteroscopy and laser lithotripsy. DETAILS OF PROCEDURE: After informed consent obtained, the patient was taken to the operating room. A MAC anesthetic was applied and she was placed in the dorsal lithotomy position. The groin area was prepped and draped in normal sterile fashion. Cystoscope was introduced into the urethra and bladder without difficulty. Her stent was identified and the left ureteral orifice engaged with an alligator forceps and partially removed. Guidewire was then passed through the stent up into the renal pelvis. The stent was then completely removed. Next, the ureteroscope was introduced into the distal ureter and driven up to the level of the stone. Next, the holmium laser fiber was introduced and this was used to fragment the stone into multiple smaller pieces. Once this was completed, the ureteroscope was removed and the cystoscope back loaded over the guidewire. A 6-Mexican multi-length ureteral stent was passed over the guidewire up into the renal pelvis. Radiographic imaging showed good position of the stent. The patient tolerated the procedure well and was transferred to recovery room in good condition. JANAK MICHAEL MD PATIENT'S NAME: ANAM BOLES [facility] AGE: 51 Y [address] ROOM: [place] [address] LOCATION: [facility] ADMIT DATE: 03/03/2017 OR/Procedure Report DISCHARGE DATE: FAMILY PHYSICIAN: Rachel Turpin MD ATTENDING PHYSICIAN: Janak Michael/benny /[id number] CC: Rachel Turpin MD d: 03/03/17 2219 t: 03/25/17 1147, OPERATIVE SUMMARY
== END ==
LOC: GPOC 02-25 15:00 → GSDC 12:48
PROC: 0TF78ZZ Fragmentation in Left Ureter, Via Natural or Artificial Opening Endoscopic (ICD-10-PCS; principal; 2017-03-03)
PROC: 0T778DZ Dilation of Left Ureter with Intraluminal Device, Via Natural or Artificial Opening Endoscopic (ICD-10-PCS; 2017-03-03)
DX: N20.1 Calculus of ureter (principal); J96.00 Acute respiratory failure, unspecified whether with hypoxia or hypercapnia; F41.9 Anxiety disorder, unspecified; I50.20 Unspecified systolic (congestive) heart failure; F31.9 Bipolar disorder, unspecified; F17.200 Nicotine dependence, unspecified, uncomplicated; Z88.1 Allergy status to other antibiotic agents; Z79.899 Other long term (current) drug therapy; Z79.891 Long term (current) use of opiate analgesic; Z79.2 Long term (current) use of antibiotics
CPT/HCPCS: C1769; J1580; J1956; J2001; J7030